=== PATIENT | male | born 1965 | race Caucasian/White ===

== ENCOUNTER 2019-05-30 11:48 | Emergency (ER) | payer OTHER, SELFPAY ==
[2019-05-30 11:56] VITALS: BP 160/99; PULSE 92; RESP 16; TEMP 36.9; O2SAT 100; BMI 23.0
--- NOTE | 2019-05-30 12:26 | ED_ITS ---
HPI - Allergic Reaction <JACQUELYN Meade - Last Filed: 05/31/19 00:26> General Chief complaint: Allergic Reaction Stated complaint: Allergic reaction, face swelling Time Seen by Provider: 05/30/19 12:00 Source: patient Mode of arrival: Ambulatory Limitations: no limitations History of Present Illness HPI narrative: This is a 53-year-old male, nonsmoker, who presents to ED with this significant other with chief complaint of sensitivity and discomfort on his tongue and whole mouth that woke him up from sleep this morning. Patient recently was seen at hospital at [facility] with a severe allergy reaction with swelling to his lips and itchy eyes to unknown allergen and was treated and discharged to home with 3 day course of prednisone 60 mg, Zyrtec (he had not started yet), Benadryl, Pepcid and EpiPen. Patient reports his symptoms recurring with watery and severely itchy eyes without other respiratory problems. Patient felt better with allergy reaction after he has taken prednisone. Patient taken hydroxyzine that he had from previous problems which helped him to get a couple more hours of rest. Patient denies breathing difficulty or swelling to his tongue, nausea or vomiting at this time. Related Data Previous Rx's Medication Instructions Recorded nystatin 5 ml PO QID 14 Days #280 ml 05/30/19 Review of Systems <JACQUELYN Meade - Last Filed: 05/31/19 00:26> Review of Systems ROS Unobtainable: All systems reviewed & are unremarkable except as noted in HPI and below PFSH <JACQUELYN Meade - Last Filed: 05/31/19 00:26> Medical History (Updated 05/30/19 @ 12:37 by JACQUELYN Meade) No significant past medical history (Acute) Surgical History No pertinent past surgical history (Acute) Social History Smoking Status: Never smoker Social History Smoking Status: Never smoker Exam <JACQUELYN Meade - Last Filed: 05/31/19 00:26> Narrative Exam Narrative: General appearance: well developed, well nourished, in no acute distress. Head: normocephalic, atraumatic, no scalp lesions, non-tender. Eye: pupil equal, round. EOMI. Conjunctivae injected and watery. Mild s welling to upper eye lids. Nose: nares patent. Oral: mucosa moist. White flat patches on the tongue. No oral pharyngeal swelling noted. Neck/Thyroid: neck supple, full range of motion, no visible masses. Skin: no suspicious rashes, lesions over visible areas. Warm and dry. Heart: no clubbing, no cyanosis, no edema. Lungs: Lungs clear to auscultate bilaterally in all lobes. Breathing even and unlabored. No stridor. No accessory muscles used. Chest: normal shape and expansion. Abdomen: non-obese, non-distended. Neurologic: alert and oriented. Cognitive exam, [employer] and PNS grossly intact on informal exam. Psych: good eye contact, normal affect. Initial Vital Signs Initial Vital Signs: Vital Signs Temperature 98.4 F 05/30/19 11:56 Pulse Rate 92 H 05/30/19 11:56 Respiratory Rate 16 05/30/19 11:56 Blood Pressure 160/99 H 05/30/19 11:56 Pulse Oximetry 100 05/30/19 11:56 <Hilaria Garcia DO - Last Filed: 05/31/19 07:46> Initial Vital Signs Initial Vital Signs: Vital Signs Temperature 98.4 F 05/30/19 11:56 Pulse Rate 92 H 05/30/19 11:56 Respiratory Rate 16 05/30/19 11:56 Blood Pressure 160/99 H 05/30/19 11:56 Pulse Oximetry 100 05/30/19 11:56 Scores <JACQUELYN Meade - Last Filed: 05/31/19 00:26> GCS Ml coma scale eye opening: Spontaneous [place] coma scale verbal response: Orientated [place] coma scale motor response: Obey commands [place] coma scale total score: 15 Course <JACQUELYN Meade - Last Filed: 05/31/19 00:26> Vital Signs Vital signs: Vital Signs - 8 hr 05/30/19 11:56 Temperature 98.4 F Pulse Rate 92 H Respiratory Rate 16 Blood Pressure 160/99 H Pulse Oximetry 100 <Hilaria Garcia DO - Last Filed: 05/31/19 07:46> Vital Signs Vital signs: Vital Signs - 8 hr 05/30/19 11:56 Temperature 98.4 F Pulse Rate 92 H Respiratory Rate 16 Blood Pressure 160/99 H Pulse Oximetry 100 MDM - Allergic Reaction <IRLANDA MeadeP - Last Filed: 05/31/19 00:26> Differential Diagnosis Differential diagnosis: Likely allergic reaction and other (Thrush) Medical Records Attestation: I reviewed the patient's medical records. Lab Data Labs: Point of Care Testing Glucose POC 127 MDM Narrative Medical decision making narrative: This is 53-year-old gentleman who currently is being treated for severe allergic reaction for last 3 days including prednisone oral with 60 mg. Patient denies history of diabetes. Patient has an appointment with Dr. Joseph tomorrow to follow-up with preventive medicine measures and to follow up. Today he noticed mouth and tongue sensitivity and discomfort. Physical exam is consistent with a thrush with white patches on his tongue. She finger stick glucose was 127 mg/dL. Patient will be treated with nystatin. Patient had use last dose of steroids this morning which helped with his allergy reaction. Patient has not started the Zyrtec that he should be taking daily. Patient advised to start Zyrtec and other H-2 blockers as a baseline allergy medications and to use sporadically Benadryl or hydroxyzine for acute allergy symptoms. Patient verbalized the understanding and agrees with treatment plan. Patient offered with IV Benadryl at this time but declined. Patient assured to follow up with Dr. Joseph tomorrow for a re-evaluation. <Hilaria Garcia DO - Last Filed: 05/31/19 07:46> Lab Data Labs: Point of Care Testing Glucose POC 127 Discharge Plan Departure Patient Disposition: Home Clinical Impression: Candidiasis of mouth Discharge Date/Time: 05/30/19 12:54 Instructions: DI for Thrush Activity Restrictions/Additional Instructions: You have been diagnosed with [thrush by physical exam and your symptoms. My suspicion is this may due to oral steroids. Your blood glucose was 127 today]. What to do: *Take your medications as directed. Please start nystatin swish and swallow for 4 times a day for next 14 days. Please start Zyrtec daily and H2 jose which is Pepcid, Zantac daily anterior symptoms improved. *Follow up with your primary care provider tomorrow as scheduled or call for an appointment. Let them know you were seen in the ED and that we asked you to be seen in follow up. *Return to ED if you have any new, worsening, or concerning symptoms, such as [breathing difficulty, swelling to her throat/tongue, chest pain, nausea/vomiting, feeling like fainting, fever, or any acute concerns]. Prescriptions: New nystatin 100,000 unit/mL suspension 5 ml PO QID 14 Days Qty: 280 RF: 0 Referrals: Ambrosio Joseph MD [Primary Care Provider] -
[2019-05-30 12:32] VITALS: BP 141/91; PULSE 65; O2SAT 98
[2019-05-30 12:54] VITALS: BP 157/96; PULSE 71; RESP 16; O2SAT 97
== END 2019-05-30 12:54 | disposition home or self-care (01) ==
PROVIDERS: Emergency Provider Nurse Practitioner Family; PCP Family Medicine
DX: T78.40XA Allergy, unspecified, initial encounter (principal)
CPT/HCPCS: 36415; 82962; 99282

== ENCOUNTER 2019-06-01 11:10 | Inpatient (IN) | payer OTHER, SELFPAY ==
[2019-06-01] VITALS (14 sets, daily range): BP systolic 143–165; BP diastolic 94–103; PULSE 92–116; RESP 12–22; TEMP 37.8–38.2; O2SAT 95–100; BMI 23.0
--- NOTE | 2019-06-01 11:41 | DI.RAD.S_ITS ---
PROCEDURE: XR CHEST 2V INDICATIONS: cough, fever TECHNIQUE: 2 views of the chest were acquired. COMPARISON: [facility], , [place] [facility], 04/14/2001, 14:52. FINDINGS: Surgical changes and devices: None. Lungs and pleura: Lungs are clear. No pleural effusions or pneumothorax. Mediastinum: Mediastinal contours are normal. Heart size is normal. Bones and chest wall: No suspicious bony abnormalities. Soft tissues appear unremarkable. IMPRESSION: No acute cardiopulmonary disease process. Dictated by: Lana Gusman MD, PhD on 06/01/2019 at 12:26 Approved by: Lana Gusman MD, PhD on 06/01/2019 at 12:27
[2019-06-01] MEDS: KETOROLAC 60 MG/2 ML VIAL 30 MG IV (11:58)
[2019-06-01] MEDS: MAG HYDROX/ALUMINUM/SIMETH SUS 20 ML, LIDOCAINE VISCOUS 2% 15 ML PO ×2 (11:58→15:43)
[2019-06-01] MEDS: SODIUM CHLORIDE 0.9% 1,000 ML 1000 ML IV (11:58)
[2019-06-01 12:00] LABS: Add Manual Diff / Slide Review NO; Basophils Absolute Auto 0 /uL (0-100); Basophils Percent Auto 0.3 % (0-2); Eosinophils Absolute Auto 0 /uL (0-450); Eosinophils Percent Auto 0.3 % (2-4); Hematocrit 40.9 % (41-53); Lymphocytes Absolute Auto 1200 /uL (1100-4500); Lymphocytes Percent Auto 10.2 % (25-40); Mean Corpuscular HGB Conc 34.3 % (30-36); Mean Corpuscular Hemoglobin 31.2 PG (26-34); Mean Corpuscular Volume 91.1 fL (80-100); Monocytes Absolute Auto 1300 /uL (0-900); Monocytes Percent Auto 10.9 % (3-14); Neutrophils Absolute Auto 9500 /uL (1500-7000); Neutrophils Percent Auto 78.3 % (50-75); Platelet Count 186 X10^3/uL (150-400); Red Blood Cell Count 4.49 X10^6/uL (4.5-5.9); Red Cell Distribution Width 12.5 % (11.6-14.8); White Blood Cell Count 12.1 X10^3/uL (4.5-11.0)
[2019-06-01 12:09] LABS: Monotest Negative (Negative)
[2019-06-01 12:12] LABS: Alanine Aminotransferase 26 IU/L (21-72); Albumin 4.3 g/dL (3.5-5.0); Albumin Globulin Ratio 1.2 (1.0-2.8); Alkaline Phosphatase 62 U/L (38-126); Aspartate Aminotransferase 32 IU/L (17-59); BUN Creatinine Ratio 15.5 (6-22); Bilirubin Total 0.9 mg/dL (0.2-1.3); Blood Urea Nitrogen 17 mg/dL (9-20); Calcium 9.5 mg/dL (8.4-10.2); Carbon Dioxide 29 mmol/L (22-32); Chloride 102 mmol/L (98-107); Estimated Glomerular Filt Rate > 60.0 mL/min (>60); Globulin 3.5 g/dL (1.7-4.1); Glucose 116 mg/dL (70-100); HEMOLYSIS < 15 (0-50); Lactate (Lactic Acid) 0.7 mmol/L (0.7-2.1); Potassium 3.5 mmol/L (3.4-5.1); Sodium 139 mmol/L (137-145); Total Protein 7.8 g/dL (6.3-8.2)
[2019-06-01 12:29] LABS: Procalcitonin 0.11 ng/mL (<0.5)
[2019-06-01 12:38] LABS: Influenza A and B by PCR Rapid Negative (Negative)
[2019-06-01] MEDS: diphenhydrAMINE 50 MG/ML VIAL 25 MG IV (13:21)
[2019-06-01] MEDS: ALBUTEROL/IPRATROPIUM 3 ML AMPUL INH ×2 (14:10→18:00)
[2019-06-01] MEDS: ACETAMINOPHEN SUSP 650 MG/20.3 ML UDC PO (14:37)
--- NOTE | 2019-06-01 15:21 | ED.URI ---
HPI - URI/Sore Throat <JACQUELYN Meade - Last Filed: 06/02/19 01:00> General Chief Complaint: Upper Respiratory Symptoms Stated Complaint: thrush Time Seen by Provider: 06/01/19 11:29 Source: patient and family Mode of arrival: Ambulatory Limitations: no limitations History of Present Illness HPI Narrative: This is a 53-year-old male, nonsmoker, who was evaluated 2 days ago in ER with thrush. Prior to this, patient was evaluated at [place] emergency room with severe allergy reaction to unknown allergen and had received epinephrine, steroids, histamine jose and Benadryl. He was discharged to home for 3 additional day course of prednisone 60 mg p.o.. On Friday he woke up with severe mouth and tongue discomfort he had difficult time with eating, drinking fluids and food. He was discharged to home with nystatin q.i.d. dose and was advised to follow up with his primary care physician. He contacted his primary care physician Dr. Joseph and was referred to ED for an evaluation. Patient reports continued odynophagia even with swallowing his saliva, feels swollen in his throat, mild fever, unable keep supine position due to feels like his saliva is going down to my lungs. He denies short of breath with this. He states it takes about 30 minutes is to swallow a few pills due to pain and is able to only tolerate few sips of milk. Patient reports he has been using nystatin about every 2 hours thought this is helping him somewhat. Related Data Home Medications Medication Instructions Recorded Confirmed hydrocodone-acetaminophen 1 - 2 tab PO Q6H PRN 06/01/19 06/01/19 Previous Rx's Medication Instructions Recorded nystatin 5 ml PO QID 14 Days #280 ml 05/30/19 Allergies Allergy/AdvReac Type Severity Reaction Status Date / Time No Known Drug Allergies Allergy Verified 06/01/19 11:23 Review of Systems <JACQUELYN Meade - Last Filed: 06/02/19 01:00> Review of Systems Narrative: General: Reports mild fever. Denies Chills, fatigue, malaise, sweats. HEENT: See HPI Respiratory: Reports cough. Denies dyspnea, wheezing, hemoptysis, sputum. Cardiovascular: Denies chest pain, palpitations, orthopnea, edema. Gastrointestinal: See HPI : Denies dysuria, frequency, incontinence, hematuria, urinary retention. Musculoskeletal: Denies weakness, joint pain or bony pain. Skin: Denies rash, skin lesions, or other. Neurologic: Denies weakness, headache, numbness, change in speech, confusion, seizures, incoordination. Psychiatric: No concerning psychosocial issues. 12-point review of systems is negative except for those stated above. PFSH <JACQUELYN Meade - Last Filed: 06/02/19 01:00> Medical History No significant past medical history (Acute) Surgical History No pertinent past surgical history (Acute) Social History Smoking Status: Never smoker Social History household members: significant other Smoking Status: Never smoker Exam <JACQUELYN Meade - Last Filed: 06/02/19 01:00> Narrative Exam Narrative: GEN: Alert, oriented x 3, ill appearing with mild distress, talking with muffled voice. Head: Normal cephalic, atraumatic. No scalp or temporal tenderness, palpable mass or rash. EYES: Pupils are equal, round, and reactive to light and accommodation. Extraocular muscles are intact bilaterally. Bilateral conjunctival injection. No subconjunctival hemorrhage, exudate and sclera non-icteric. ENT: Hearing grossly intact. Nose without bleeding, purulent discharge or deviation. Mucous membrane moist, thick white patchy on tongue and roof of mouth without ulcerations. Throat with erythema. No tonsillar hypertrophy or exudate. Uvula in midline, airway patent. Neck: Trachea in midline. No JVD, non-tender without obvious mild cervical lymphadenopathy. No masses or thyroid megaly. Supple, non-tender and no meningeal signs. CARDIAC: Tachycardia but in regular rhythm without murmurs, gallops, or rubs. No chest wall tenderness. No peripheral edema, cyanosis or pallor. Capillary refill is less than 2 seconds. RESPIRATORY: Lungs are cleat to auscultate bilaterally. No cough, wheezes, rales, or rhonchi. No respiratory distress, increase work of breathing, or accessary muscle used. ABD: Abdomen soft, nontender and non-distended. No guarding or rebound tenderness to palpate. Bowel sounds are normal in all 4 quadrants. There is no palpable masses or organomegaly. EXT: Full painless ROM of all extremities with no loss of sensation, strength, effusion or edema. SKIN: Warm, dry, normal color for patient. No erythema, lesions or rash over visible areas. BACK: Nontender without deformity or crepitance. No flank tenderness. NEUROLOGICAL: Alert and oriented to place, time and person. Sensation and motor function intact bilaterally. No facial droops, dysphasia. PSYCHIATRIC: Good judgement and reason, without hallucinations, abnormal affect or abnormal behaviors during the examination. Patient is not suicidal. Initial Vital Signs Initial Vital Signs: Vital Signs Temperature 100.3 F H 06/01/19 11:19 Pulse Rate 116 H 06/01/19 11:19 Respiratory Rate 22 06/01/19 11:19 Blood Pressure 155/103 H 06/01/19 11:19 Pulse Oximetry 97 06/01/19 11:19 <Kelle Nguyen DO - Last Filed: 06/02/19 07:05> Initial Vital Signs Initial Vital Signs: Vital Signs Temperature 100.3 F H 06/01/19 11:19 Pulse Rate 116 H 06/01/19 11:19 Respiratory Rate 22 06/01/19 11:19 Blood Pressure 155/103 H 06/01/19 11:19 Pulse Oximetry 97 06/01/19 11:19 Course <JACQUELYN Meade - Last Filed: 06/02/19 01:00> Orders Ordered: Albuterol/Ipratropium (Duoneb) 3 ml INH RTQ6HR PRN PRN Reason: Shortness Of Breath Dexamethasone (Decadron) 5 mg IV Q6HR [facility] Last Admin: 06/02/19 06:41 Dose: 5 mg Documented by: Admin: 06/02/19 00:21 Dose: 5 mg Documented by: Admin: 06/01/19 22:56 Dose: 5 mg Documented by: LEO Enoxaparin Sodium (Lovenox) 40 mg SUBCUT DAILY [facility] Hydromorphone HCl (Dilaudid) 0.5 mg IV Q2H PRN PRN Reason: Pain, Severe (7-10) Last Admin: 06/02/19 05:36 Dose: 0.5 mg Documented by: Admin: 06/02/19 03:06 Dose: 0.5 mg Documented by: Admin: 06/02/19 00:28 Dose: 0.5 mg Documented by: CLAUDIA Sodium Chloride (Normal Saline 0.9%) 1,000 mls @ 100 mls/hr IV CONT TIFFANIE Last Admin: 06/01/19 21:30 Dose: 100 mls/hr Documented by: Infusion: 06/01/19 21:30 Dose: 100 mls/hr Documented by: Admin: 06/01/19 18:08 Dose: 100 mls/hr Documented by: LULA Ampicillin Sodium/Sulbactam (Sodium 3 gm/ Sodium Chloride) 100 mls @ 100 mls/hr IV Q6H TIFFANIE Last Infusion: 06/02/19 04:10 Dose: 100 mls/hr Documented by: Admin: 06/02/19 03:07 Dose: 100 mls/hr Documented by: CLAUDIA Ketorolac Tromethamine (Toradol) 15 mg IV Q6H TIFFANIE Stop: 06/07/19 00:29 Last Admin: 06/02/19 06:51 Dose: 15 mg Documented by: Admin: 06/02/19 00:37 Dose: 15 mg Documented by: CLAUDIA Sodium Chloride (Normal Saline 0.9% Flush) 10 ml IV PRN PRN PRN Reason: Flush Last Admin: 06/02/19 06:52 Dose: 10 ml Documented by: Admin: 06/02/19 06:41 Dose: 10 ml Documented by: Admin: 06/02/19 05:37 Dose: 10 ml Documented by: CLAUDIA Discontinued Medications Acetaminophen (Tylenol Susp) 650 mg PO NOW ONE Stop: 06/01/19 14:18 Last Admin: 06/01/19 14:37 Dose: 650 mg Documented by: CANDE Albuterol/Ipratropium (Duoneb) 3 ml INH NOW ONE Stop: 06/01/19 13:55 Last Admin: 06/01/19 14:10 Dose: 3 ml Documented by: MARÍA ELENA Albuterol/Ipratropium (Duoneb) 3 ml INH NOW ONE Stop: 06/01/19 17:54 Last Admin: 06/01/19 18:00 Dose: 3 ml Documented by: GEOVANNI Medina Hydrox/Mg Hydrox/Simethicone 20 ml/ Lidocaine HCl 15 ml 0 ml PO NOW ONE Stop: 06/01/19 11:42 Last Admin: 06/01/19 11:58 Dose: 35 ml Documented by: CANDE Medina Hydrox/Mg Hydrox/Simethicone 20 ml/ Lidocaine HCl 15 ml 0 ml PO NOW ONE Stop: 06/01/19 15:22 Last Admin: 06/01/19 15:43 Dose: 15 ml Documented by: LULA Diphenhydramine HCl (Benadryl) 25 mg IV NOW ONE Stop: 06/01/19 12:53 Last Admin: 06/01/19 13:21 Dose: 25 mg Documented by: CANDE Sodium Chloride (Normal Saline 0.9%) 1,000 mls @ 1,000 mls/hr IV BOLUS ONE Stop: 06/01/19 12:40 Last Infusion: 06/01/19 13:16 Dose: 0 mls/hr Documented by: Admin: 06/01/19 11:58 Dose: 1,000 mls/hr Documented by: CANDE Dexamethasone 20 mg/ Sodium (Chloride) 52 mls @ 208 mls/hr IV NOW ONE Stop: 06/01/19 17:53 Last Infusion: 06/01/19 18:31 Dose: 0 mls/hr Documented by: Admin: 06/01/19 18:07 Dose: 208 mls/hr Documented by: LULA Ampicillin Sodium/Sulbactam (Sodium 3 gm/ Sodium Chloride) 100 mls @ 100 mls/hr IV Q6H TIFFANIE Last Admin: 06/02/19 01:42 Dose: Not Given Documented by: Infusion: 06/02/19 00:17 Dose: 0 mls/hr Documented by: Admin: 06/01/19 21:29 Dose: 100 mls/hr Documented by: LEO Ketorolac Tromethamine (Toradol) 30 mg IV NOW ONE Stop: 06/01/19 11:42 Last Admin: 06/01/19 11:58 Dose: 30 mg Documented by: CANDE Morphine Sulfate (Morphine) 2 mg IV NOW ONE Stop: 06/01/19 18:13 Last Admin: 06/01/19 18:15 Dose: 2 mg Documented by: LULA Nystatin (Mycostatin Susp) 500,000 unit PO NOW ONE Stop: 06/01/19 15:09 Last Admin: 06/01/19 15:53 Dose: 500,000 unit Documented by: CANDE Vital Signs Vital signs: Vital Signs - 8 hr 06/01/19 11:19 06/01/19 11:58 06/01/19 12:30 Temperature 100.3 F H 100.3 F H Pulse Rate 116 H 96 H Respiratory Rate 22 15 Blood Pressure 155/103 H Blood Pressure [Right Arm] 143/101 H Pulse Oximetry 97 97 06/01/19 13:05 06/01/19 13:16 06/01/19 13:45 Temperature 100.0 F H Pulse Rate 92 H 98 H Respiratory Rate 14 17 Blood Pressure Blood Pressure [Right Arm] 154/96 H 164/99 H Pulse Oximetry 97 99 06/01/19 14:10 06/01/19 14:37 06/01/19 15:15 Temperature 100.3 F H Pulse Rate 103 H 105 H Respiratory Rate 18 16 Blood Pressure Blood Pressure [Right Arm] 145/95 H Pulse Oximetry 100 95 06/01/19 16:17 Temperature Pulse Rate 103 H Respiratory Rate 22 Blood Pressure Blood Pressure [Right Arm] 145/100 H Pulse Oximetry 96 <Kelle Nguyen DO - Last Filed: 06/02/19 07:05> Orders Ordered: Albuterol/Ipratropium (Duoneb) 3 ml INH RTQ6HR PRN PRN Reason: Shortness Of Breath Dexamethasone (Decadron) 5 mg IV Q6HR [facility] Last Admin: 06/02/19 06:41 Dose: 5 mg Documented by: Admin: 06/02/19 00:21 Dose: 5 mg Documented by: Admin: 06/01/19 22:56 Dose: 5 mg Documented by: LEO Enoxaparin Sodium (Lovenox) 40 mg SUBCUT DAILY [facility] Hydromorphone HCl (Dilaudid) 0.5 mg IV Q2H PRN PRN Reason: Pain, Severe (7-10) Last Admin: 06/02/19 05:36 Dose: 0.5 mg Documented by: Admin: 06/02/19 03:06 Dose: 0.5 mg Documented by: Admin: 06/02/19 00:28 Dose: 0.5 mg Documented by: CLAUDIA Sodium Chloride (Normal Saline 0.9%) 1,000 mls @ 100 mls/hr IV CONT TIFFANIE Last Admin: 06/01/19 21:30 Dose: 100 mls/hr Documented by: Infusion: 06/01/19 21:30 Dose: 100 mls/hr Documented by: Admin: 06/01/19 18:08 Dose: 100 mls/hr Documented by: LULA Ampicillin Sodium/Sulbactam (Sodium 3 gm/ Sodium Chloride) 100 mls @ 100 mls/hr IV Q6H [facility] Last Infusion: 06/02/19 04:10 Dose: 100 mls/hr Documented by: Admin: 06/02/19 03:07 Dose: 100 mls/hr Documented by: CLAUDIA Ketorolac Tromethamine (Toradol) 15 mg IV Q6H TIFFANIE Stop: 06/07/19 00:29 Last Admin: 06/02/19 06:51 Dose: 15 mg Documented by: Admin: 06/02/19 00:37 Dose: 15 mg Documented by: CLAUDIA Sodium Chloride (Normal Saline 0.9% Flush) 10 ml IV PRN PRN PRN Reason: Flush Last Admin: 06/02/19 06:52 Dose: 10 ml Documented by: Admin: 06/02/19 06:41 Dose: 10 ml Documented by: Admin: 06/02/19 05:37 Dose: 10 ml Documented by: CLAUDIA Discontinued Medications Acetaminophen (Tylenol Susp) 650 mg PO NOW ONE Stop: 06/01/19 14:18 Last Admin: 06/01/19 14:37 Dose: 650 mg Documented by: CANDE Albuterol/Ipratropium (Duoneb) 3 ml INH NOW ONE Stop: 06/01/19 13:55 Last Admin: 06/01/19 14:10 Dose: 3 ml Documented by: MARÍA ELENA Albuterol/Ipratropium (Duoneb) 3 ml INH NOW ONE Stop: 06/01/19 17:54 Last Admin: 06/01/19 18:00 Dose: 3 ml Documented by: GEOVANNI Medina Hydrox/Mg Hydrox/Simethicone 20 ml/ Lidocaine HCl 15 ml 0 ml PO NOW ONE Stop: 06/01/19 11:42 Last Admin: 06/01/19 11:58 Dose: 35 ml Documented by: CANDE Medina Hydrox/Mg Hydrox/Simethicone 20 ml/ Lidocaine HCl 15 ml 0 ml PO NOW ONE Stop: 06/01/19 15:22 Last Admin: 06/01/19 15:43 Dose: 15 ml Documented by: LULA Diphenhydramine HCl (Benadryl) 25 mg IV NOW ONE Stop: 06/01/19 12:53 Last Admin: 06/01/19 13:21 Dose: 25 mg Documented by: CANDE Sodium Chloride (Normal Saline 0.9%) 1,000 mls @ 1,000 mls/hr IV BOLUS ONE Stop: 06/01/19 12:40 Last Infusion: 06/01/19 13:16 Dose: 0 mls/hr Documented by: Admin: 06/01/19 11:58 Dose: 1,000 mls/hr Documented by: CANDE Dexamethasone 20 mg/ Sodium (Chloride) 52 mls @ 208 mls/hr IV NOW ONE Stop: 06/01/19 17:53 Last Infusion: 06/01/19 18:31 Dose: 0 mls/hr Documented by: Admin: 06/01/19 18:07 Dose: 208 mls/hr Documented by: LULA Ampicillin Sodium/Sulbactam (Sodium 3 gm/ Sodium Chloride) 100 mls @ 100 mls/hr IV Q6H TIFFANIE Last Admin: 06/02/19 01:42 Dose: Not Given Documented by: Infusion: 06/02/19 00:17 Dose: 0 mls/hr Documented by: Admin: 06/01/19 21:29 Dose: 100 mls/hr Documented by: LEO Ketorolac Tromethamine (Toradol) 30 mg IV NOW ONE Stop: 06/01/19 11:42 Last Admin: 06/01/19 11:58 Dose: 30 mg Documented by: CANDE Morphine Sulfate (Morphine) 2 mg IV NOW ONE Stop: 06/01/19 18:13 Last Admin: 06/01/19 18:15 Dose: 2 mg Documented by: LULA Nystatin (Mycostatin Susp) 500,000 unit PO NOW ONE Stop: 06/01/19 15:09 Last Admin: 06/01/19 15:53 Dose: 500,000 unit Documented by: CANDE Vital Signs Vital signs: Vital Signs - 8 hr 06/01/19 11:19 06/01/19 11:58 06/01/19 12:30 Temperature 100.3 F H 100.3 F H Pulse Rate 116 H 96 H Respiratory Rate 22 15 Blood Pressure 155/103 H Blood Pressure [Right Arm] 143/101 H Pulse Oximetry 97 97 06/01/19 13:05 06/01/19 13:16 06/01/19 13:45 Temperature 100.0 F H Pulse Rate 92 H 98 H Respiratory Rate 14 17 Blood Pressure Blood Pressure [Right Arm] 154/96 H 164/99 H Pulse Oximetry 97 99 06/01/19 14:10 06/01/19 14:37 06/01/19 15:15 Temperature 100.3 F H Pulse Rate 103 H 105 H Respiratory Rate 18 16 Blood Pressure Blood Pressure [Right Arm] 145/95 H Pulse Oximetry 100 95 06/01/19 16:17 Temperature Pulse Rate 103 H Respiratory Rate 22 Blood Pressure Blood Pressure [Right Arm] 145/100 H Pulse Oximetry 96 MDM - URI/Sore Throat <JACQUELYN Meade - Last Filed: 06/02/19 01:00> Differential Diagnosis Differential diagnosis: Likely upper respiratory infection, pharyngitis and other (Thrush, dysphagia, airway edema, epiglottitis, peritonsillar abscess) Medical Records Attestation: I reviewed the patient's medical records. Lab Data Attestation: I reviewed the patient's lab results. Result diagrams: 06/02/19 05:35 06/01/19 11:36 Labs: Lab Results 06/01/19 06/01/19 06/01/19 Range/Units 11:36 11:36 11:36 WBC 12.1 H (4.5-11.0) X10^3/uL RBC 4.49 L (4.5-5.9) X10^6/uL Hgb 14.0 (13.5-17.5) g/dL Hct 40.9 L (41-53) % MCV 91.1 (80-100) fL MCH 31.2 (26-34) PG MCHC 34.3 (30-36) % RDW 12.5 (11.6-14.8) % Plt Count 186 (150-400) X10^3/uL Neut % (Auto) 78.3 H (50-75) % Lymph % (Auto) 10.2 L (25-40) % Crawford % (Auto) 10.9 (3-14) % Eos % (Auto) 0.3 L (2-4) % Baso % (Auto) 0.3 (0-2) % Neut # (Auto) 9500 H (4687-7968) /uL Lymph # (Auto) 1200 (6928-8797) /uL Crawford # (Auto) 1300 H (0-900) /uL Eos # (Auto) 0 (0-450) /uL Baso # (Auto) 0 (0-100) /uL Sodium 139 (137-145) mmol/L Potassium 3.5 (3.4-5.1) mmol/L Chloride 102 (98-107) mmol/L Carbon Dioxide 29 (22-32) mmol/L BUN 17 (9-20) mg/dL Creatinine 1.10 (0.66-1.25) mg/dL Estimated GFR > 60.0 (>60) mL/min BUN/Creatinine Ratio 15.5 (6-22) Glucose 116 H (70-100) mg/dL Lactate 0.7 (0.7-2.1) mmol/L Calcium 9.5 (8.4-10.2) mg/dL Total Bilirubin 0.9 (0.2-1.3) mg/dL AST 32 (17-59) IU/L ALT 26 (21-72) IU/L Alkaline Phosphatase 62 (38-126) U/L Total Protein 7.8 (6.3-8.2) g/dL Albumin 4.3 (3.5-5.0) g/dL Globulin 3.5 (1.7-4.1) g/dL Albumin/Globulin Ratio 1.2 (1.0-2.8) Procalcitonin (<0.5) ng/mL Monoscreen (Negative) Influenza A & B (PCR) (Negative) 06/01/19 06/01/19 06/01/19 Range/Units 11:36 11:36 12:05 WBC (4.5-11.0) X10^3/uL RBC (4.5-5.9) X10^6/uL Hgb (13.5-17.5) g/dL Hct (41-53) % MCV (80-100) fL MCH (26-34) PG MCHC (30-36) % RDW (11.6-14.8) % Plt Count (150-400) X10^3/uL Neut % (Auto) (50-75) % Lymph % (Auto) (25-40) % Crawford % (Auto) (3-14) % Eos % (Auto) (2-4) % Baso % (Auto) (0-2) % Neut # (Auto) (7663-7733) /uL Lymph # (Auto) (2765-9324) /uL Crawford # (Auto) (0-900) /uL Eos # (Auto) (0-450) /uL Baso # (Auto) (0-100) /uL Sodium (137-145) mmol/L Potassium (3.4-5.1) mmol/L Chloride (98-107) mmol/L Carbon Dioxide (22-32) mmol/L BUN (9-20) mg/dL Creatinine (0.66-1.25) mg/dL Estimated GFR (>60) mL/min BUN/Creatinine Ratio (6-22) Glucose (70-100) mg/dL Lactate (0.7-2.1) mmol/L Calcium (8.4-10.2) mg/dL Total Bilirubin (0.2-1.3) mg/dL AST (17-59) IU/L ALT (21-72) IU/L Alkaline Phosphatase (38-126) U/L Total Protein (6.3-8.2) g/dL Albumin (3.5-5.0) g/dL Globulin (1.7-4.1) g/dL Albumin/Globulin Ratio (1.0-2.8) Procalcitonin 0.11 (<0.5) ng/mL Monoscreen Negative (Negative) Influenza A & B (PCR) Negative (Negative) Point of Care Testing Rapid Strep A Negative Imaging Data Chest x-ray: Radiologist's impression: [address] [address] XRay Report Signed Patient: Derick Morgan KMR#: [id number] : 1965Acct:[id number] Age/Sex: 53 / MDate of Service: 06/01/19 Loc: ED Accession Number: [id number] Procedure: XR chest 2V Ordering Provider: Pernell Currie PROCEDURE: XR CHEST 2V INDICATIONS: cough, fever TECHNIQUE: 2 views of the chest were acquired. COMPARISON: [facility], , RENAL, 04/14/2001, 14:52. FINDINGS: Surgical changes and devices: None. Lungs and pleura: Lungs are clear. No pleural effusions or pneumothorax. Mediastinum: Mediastinal contours are normal. Heart size is normal. Bones and chest wall: No suspicious bony abnormalities. Soft tissues appear unremarkable. IMPRESSION: No acute cardiopulmonary disease process. Dictated by: Lana Gusman MD, PhD on 06/01/2019 at 12:26 Approved by: Lana Gusman MD, PhD on 06/01/2019 at 12:27 CT-Neck soft tissue: Radiologist's impression: [address] [address] [address] Scan Report Signed Patient: Derick Morgan KMR#: [id number] : 1965Acct:[id number] Age/Sex: 53 / MDate of Service: 06/01/19 Loc: ED Accession Number: [id number] Procedure: CT soft tissue neck w con Ordering Provider: Pernell Currie PROCEDURE: CT SOFT TISSUE NECK W CON INDICATIONS: dysphagia of fluid, pain, fever TECHNIQUE: After the administration of intravenous contrast, 3.0 mm axial sections acquired from the sella to the aortic arch. Additional oblique axial 3.0 mm sections acquired through the pharynx. 3 mm thick coronal and sagittal reformats were generated. For radiation dose reduction, the following was used: automated exposure control. COMPARISON: None. FINDINGS: Image quality: There is streak artifact from patient's dental hardware bilaterally. Lymph nodes: There are bilateral mildly prominent cervical lymph nodes including a right level II node measuring up to 1.0 cm in short axis. Findings are nonspecific but likely reactive. Vessels: Visualized vasculature appears patent. Neck spaces: The oropharynx, nasopharynx, and pharynx demonstrate no discrete mucosal mass lesions. There is mild concentric mucosal thickening within the oropharynx with associated mild luminal narrowing. The vocal cords, false vocal cords, pyriform sinuses, epiglottis, vallecula, and tongue base all appear within normal limits. Extramucosal spaces appear within normal limits. No evidence of a tonsillar or peritonsillar abscess. Glands: The parotid and submandibular glands appear normal. Thyroid gland demonstrates no discrete nodules at. Miscellaneous: Visualized brain and orbits appear normal. Lung apices demonstrate irregular nodule in the right apex measuring up to approximately 0.5 cm. Superficial soft tissues appear normal. Bones: No suspicious bony lesions. Visualized sinuses and mastoids appear unremarkable. IMPRESSION: 1. Mild mucosal thickening in the oropharynx with associated mild luminal narrowing. No discrete mass lesion or fluid collection in the neck. 2. Mildly prominent bilateral cervical lymph nodes are nonspecific but likely reactive. 3. Irregular small nodule in the right lung apex. Other findings represent scarring, a small neoplasm cannot be excluded. Recommend followup chest CT in 6 months to demonstrate stability if clinically indicated. Dictated by: Gorge Kang M.D. on 06/01/2019 at 17:07 Approved by: Gorge Kang M.D. on 06/01/2019 at 17:14 [facility] Narrative Medical decision making narrative: This is a 53-year-old gentleman who presents to ED twice over last 3 days. Patient was seen initially with thrush after he was treated for an allergy reaction at [place] emergency room including Epinephrine, steroids, benadryl, histamine jose and discharged to home with allergy medication, Benadryl, prednisone 60 mg for 3 days, and histamine jose. When patient was seen in [facility] Emergency room initially, had completed a course of steroids and noticed light white patch on his tongue with discomfort. Patient was discharged than with nystatin 500,000 unit q.i.d. does. Patient returned today with worsening symptoms of mouth/tongue discomfort with thick white patches on his tongue and roof of the mouth, unable to tolerate food but small amount of milk due to pain, mild fever, unable to manage his secretion well and unable to rest in supine position due to difficulty swallowing. Patient denies short of breath at this time. The Monospot, strep PCR and flu swabs were negative. Wound culture on his mouth and tongue was obtained and sent out to lab with pending results. Obtained without acute findings such as pneumonia, pleural effusion or pneumothorax. There was mild increase in WBC with a neutrophil, mild decrease of lymphocytes and eosinophil. Blood glucose was mildly elevated without signs of dehydration. Procalcitonin and lactate were negative. Patient was medicated multiple times with multiple medications to treat his symptoms. Patient's fever/pain was treated with Tylenol and Toradol. He was hydrated with 1 L of normal saline. Oral discomfort was medicated with GI cocktailsx2. Routine nystatin medications were provided as scheduled. Provided DuoNeb for coughing and secretion and wet crackles in upper lobes. Patient was unable to pass a swallow test for putting consistency that was conducted by speech therapist in the ED. He has been placed on NPO except declined medication at this time. Consulted Dr. Joseph over phone call with patient's condition and added CT soft and neck order as Dr. Joseph requested. Patient reports his discomfort has improved a bit and fever has improved. Patient was evaluated by Dr. Joseph after this and he kindly accepted patient for an admission and took over his care. <Kelle Nguyen, DO - Last Filed: 06/02/19 07:05> Lab Data Labs: Lab Results 06/01/19 06/01/19 06/01/19 Range/Units 11:36 11:36 11:36 WBC 12.1 H (4.5-11.0) X10^3/uL RBC 4.49 L (4.5-5.9) X10^6/uL Hgb 14.0 (13.5-17.5) g/dL Hct 40.9 L (41-53) % MCV 91.1 (80-100) fL MCH 31.2 (26-34) PG MCHC 34.3 (30-36) % RDW 12.5 (11.6-14.8) % Plt Count 186 (150-400) X10^3/uL Neut % (Auto) 78.3 H (50-75) % Lymph % (Auto) 10.2 L (25-40) % Crawford % (Auto) 10.9 (3-14) % Eos % (Auto) 0.3 L (2-4) % Baso % (Auto) 0.3 (0-2) % Neut # (Auto) 9500 H (8994-7915) /uL Lymph # (Auto) 1200 (4542-7146) /uL Crawford # (Auto) 1300 H (0-900) /uL Eos # (Auto) 0 (0-450) /uL Baso # (Auto) 0 (0-100) /uL Sodium 139 (137-145) mmol/L Potassium 3.5 (3.4-5.1) mmol/L Chloride 102 (98-107) mmol/L Carbon Dioxide 29 (22-32) mmol/L BUN 17 (9-20) mg/dL Creatinine 1.10 (0.66-1.25) mg/dL Estimated GFR > 60.0 (>60) mL/min BUN/Creatinine Ratio 15.5 (6-22) Glucose 116 H (70-100) mg/dL Lactate 0.7 (0.7-2.1) mmol/L Calcium 9.5 (8.4-10.2) mg/dL Total Bilirubin 0.9 (0.2-1.3) mg/dL AST 32 (17-59) IU/L ALT 26 (21-72) IU/L Alkaline Phosphatase 62 (38-126) U/L Total Protein 7.8 (6.3-8.2) g/dL Albumin 4.3 (3.5-5.0) g/dL Globulin 3.5 (1.7-4.1) g/dL Albumin/Globulin Ratio 1.2 (1.0-2.8) Procalcitonin (<0.5) ng/mL Monoscreen (Negative) Influenza A & B (PCR) (Negative) 06/01/19 06/01/19 06/01/19 Range/Units 11:36 11:36 12:05 WBC (4.5-11.0) X10^3/uL RBC (4.5-5.9) X10^6/uL Hgb (13.5-17.5) g/dL Hct (41-53) % MCV (80-100) fL MCH (26-34) PG MCHC (30-36) % RDW (11.6-14.8) % Plt Count (150-400) X10^3/uL Neut % (Auto) (50-75) % Lymph % (Auto) (25-40) % [place] % (Auto) (3-14) % Eos % (Auto) (2-4) % Baso % (Auto) (0-2) % Neut # (Auto) (8286-7544) /uL Lymph # (Auto) (6658-0760) /uL [place] # (Auto) (0-900) /uL Eos # (Auto) (0-450) /uL Baso # (Auto) (0-100) /uL Sodium (137-145) mmol/L Potassium (3.4-5.1) mmol/L Chloride (98-107) mmol/L Carbon Dioxide (22-32) mmol/L BUN (9-20) mg/dL Creatinine (0.66-1.25) mg/dL Estimated GFR (>60) mL/min BUN/Creatinine Ratio (6-22) Glucose (70-100) mg/dL Lactate (0.7-2.1) mmol/L Calcium (8.4-10.2) mg/dL Total Bilirubin (0.2-1.3) mg/dL AST (17-59) IU/L ALT (21-72) IU/L Alkaline Phosphatase (38-126) U/L Total Protein (6.3-8.2) g/dL Albumin (3.5-5.0) g/dL Globulin (1.7-4.1) g/dL Albumin/Globulin Ratio (1.0-2.8) Procalcitonin 0.11 (<0.5) ng/mL Monoscreen Negative (Negative) Influenza A & B (PCR) Negative (Negative) Point of Care Testing Rapid Strep A Negative Discharge Plan Departure Patient Disposition: Admitted as Observation Clinical Impression: Laryngeal edema Discharge Date/Time: 06/01/19 18:51 Admit Date/Time: 06/01/19 17:34 Admit Provider: Ambrosio Joseph
[2019-06-01] MEDS: NYSTATIN SUSP 500,000 UNIT/5 ML UDC 500000 UNIT PO (15:53)
--- NOTE | 2019-06-01 16:41 | DI.CT.S_ITS ---
PROCEDURE: CT SOFT TISSUE NECK W CON INDICATIONS: dysphagia of fluid, pain, fever TECHNIQUE: After the administration of intravenous contrast, 3.0 mm axial sections acquired from the sella to the aortic arch. Additional oblique axial 3.0 mm sections acquired through the pharynx. 3 mm thick coronal and sagittal reformats were generated. For radiation dose reduction, the following was used: automated exposure control. COMPARISON: None. FINDINGS: Image quality: There is streak artifact from patient's dental hardware bilaterally. Lymph nodes: There are bilateral mildly prominent cervical lymph nodes including a right level II node measuring up to 1.0 cm in short axis. Findings are nonspecific but likely reactive. Vessels: Visualized vasculature appears patent. Neck spaces: The oropharynx, nasopharynx, and pharynx demonstrate no discrete mucosal mass lesions. There is mild concentric mucosal thickening within the oropharynx with associated mild luminal narrowing. The vocal cords, false vocal cords, pyriform sinuses, epiglottis, vallecula, and tongue base all appear within normal limits. Extramucosal spaces appear within normal limits. No evidence of a tonsillar or peritonsillar abscess. Glands: The parotid and submandibular glands appear normal. Thyroid gland demonstrates no discrete nodules at. Miscellaneous: Visualized brain and orbits appear normal. Lung apices demonstrate irregular nodule in the right apex measuring up to approximately 0.5 cm. Superficial soft tissues appear normal. Bones: No suspicious bony lesions. Visualized sinuses and mastoids appear unremarkable. IMPRESSION: 1. Mild mucosal thickening in the oropharynx with associated mild luminal narrowing. No discrete mass lesion or fluid collection in the neck. 2. Mildly prominent bilateral cervical lymph nodes are nonspecific but likely reactive. 3. Irregular small nodule in the right lung apex. Other findings represent scarring, a small neoplasm cannot be excluded. Recommend followup chest CT in 6 months to demonstrate stability if clinically indicated. Dictated by: Gorge Kang M.D. on 06/01/2019 at 17:07 Approved by: Gorge Kang M.D. on 06/01/2019 at 17:14
--- NOTE | 2019-06-01 17:48 | ST.IPIE ---
Visit Care Team Role Provider Type Hermelindo Muller MD Other Providers Physician Specialty: Ear, Nose, Throat Address: [address] [place] [address], [id number] Email: [email or web address] JACQUELYN Meade Emergency Provider Advanced Customer Engineer Specialty: FP Address: [address] [place] [address], [id number] Email: Ambrosio Joseph MD Admit Provider Physician Attending Provider Primary Care Provider Specialty: Family Practice Address: [address] [place] [address], [id number] Email: [email or web address] Past Medical History (Last Updated 05/30/19 @ 12:31 by JACQUELYN Meade) No significant past medical history (Acute Medical) ST IP 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 Start: 06/01/19 16:51 Freq: Status: Active Protocol: Document 06/01/19 16:51 MALIK (Rec: 06/01/19 17:47 MALIK [id number]) Clinical Swallow Evaluation Session Time Visit Start Time 16:05 Visit Stop Time 16:50 Total Visit Minutes 45 Referral Referring Physician JACQUELYN Meade Reason for Referral Difficulty swallowing Setting Assessment Location Acute Care Visit Type Note Type Initial Evaluation Next Note Type Next Note Type Treatment Note Patient Information Identification Type Name,ID Card History This 53-yr-old male experienced an allergic reaction, substance unclear, on FridayMay 28 and received steroid treatment. He then acquired oral and apparently pharyngeal thrush creating difficult and painful swallowing, coughing, speaking, and voice production. Since then, he has been able to tolerate swallowing only occasional small sips of milk. In ED, the pt has received lidocaine, which has eased the pain. The pt has been managing secretions and phlegm primarily with suction. Chest x-ray revealed clear lungs, no pleural effusions or pneumothorax, no acute cardiopulmonary disease process. Subjective Observations The pt was awake, alert and sitting at edge of bed with his sister present throughout the evaluation. Both his sister and he provided case history supplemental to Nsg reports. The pt's speech was imprecise but intelligible. The pt had recently (within ~30 min) self-administered lidocaine. He reported feeling the best he had felt since Friday but continued with moderate oral and pharyngeal pain. He was agreeable to oral trials, which were administered before and after additional dose of lidocaine. Evaluation Liquids Trialed Thin,[place] Solids Trialed Puree Administration Type Tea Spoon,Cup Single Sip,Self- Feeding Oral Impairment Severely Impaired Oral Strategies Upright at 90 degrees, Controlled Bite/Sip Size,Other Oral Phase Comments Oral Peripheral Exam: Symmetrical features. Thrush present and dispersed throughout oral cavity, most prominently on hard palate. Also present on buccal mucosa, faucial pillars, and uvula. Lingual trembling present at rest and upon lingual movements. Lingual ROM, strength, and coordination is reduced. Labial and buccal ROM and coordination are WFL; however, pt reports pain with all movement of oral musculature. Soft palate elevates upon phonation. Significantly reduced hyolaryngeal elevation and excursion observed via palpation with attempt at volitional swallow. Pt has natural dentition in good condition. Oral Phase: Severe impairment of bolus formation and a/p propulsion present secondary to pain with lingual movements , requiring pt to tilt head back to initiate swallow with both liquid and solid. Greater effort required with 1/2 tsp pudding than with liquid. Mild -moderate oral residue of liquid present. Pt required 2- 3 swallow attempts per bolus to clear oral cavity. Pharyngeal Impairment Severely Impaired Pharyngeal Strategies Sitting Upright (90 deg),Small Bites and Sips Pharyngeal Phase Comments Volitional swallow of saliva was incomplete, and wet vocal quality was perceived intermittently prior to administration of oral trials, indicating compromised airway and penetration of saliva. All pharyngeal swallows of oral trials were significantly effortful and reported by pt to be painful. Multiple swallows per bolus were required. Consistent immediate and delayed throat clearing was present with thin liquid. Pt reported sticking sensation with both 1/2 tsp trial of pudding and with NTL which did not clear with subsequent liquid wash or dry swallows and required suction. Following consumption of lidocaine, the pt reported decreased pain and attempted swallow of single sip NTL. He produce immediate strong cough upon swallow. Trials were discontinued for pt safety and comfort. Findings Dysphagia Type Severe oral and pharyngeal Rehabilitation Potential Good Impressions The pt presents with severe oral and pharyngeal dysphagia secondary to pain stemming from oral and pharyngeal thrush. Suspect thrush may extend to larynx and vocal folds. Dysphagia is characterized by significantly reduced muscular coordination and ROM impairing oral formation and transport of bolus, airway protection with oral intake and saliva, and clearance or oral and pharyngeal residue. The pt experiences relief of pain with lidocaine; however, numbing of tissue appears to be detrimental to pharyngeal sensory input and to decrease responsiveness necessary for airway closure during swallow. The pt is at high risk of aspiration and is not safe for oral intake at this time. Recommend NPO status with exception of medications, and frequent use of suction to manage saliva in order to reduce risk of aspiration of bacteria with saliva. Diet Recommendations Liquids Order NPO Diet Order NPO Medication Recommendations As Tolerated,One at a Time Treatment Plan Placement Recommendations after Home Discharge Appropriate for Therapy Yes Therapy Recommendations Ongoing assessment of swallow function and safety. Assessment and training of compensatory swallow strategies. Pt/Family education. Dysphagia Goals The pt will demonstrate swallow safety adequate to safely resume oral intake. 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
[2019-06-01] MEDS: dexAMETHasone 20 MG in SODIUM CHLORIDE 0.9% 50 ML 208 ML IV (18:07)
--- NOTE | 2019-06-01 18:07 | PM.HP.1 ---
History of Present Illness History of Present Illness Date Patient Seen: 06/01/19 Time Patient Seen: 18:07 Chief complaint: thresh Narrative: Laryngeal edema. Patient admitted through the ER. Patient again get ill on Friday lab again have some swelling of his face difficulty swallowing disorder felt unusual. Apparently his female friend had similar symptoms but not quite severe. Patient went to the local emergency room there was thought to be having some for anaphylactic reaction and was treated with some steroids apparently tapering dose oral steroids and antihistamines. He was given epinephrine shot also. Apparently the following day did get better I however on Friday seem to get worse and he went to the ER they thought he had thrush put on nystatin. Since then he has got progressing gotten worse increasing pain increasing pain in his mouth and throat. Difficulty swallowing actually has difficult time managing his own saliva. He has had no cough he has had no URI symptoms otherwise. Has had a fever today u 101 No vomiting no diarrhea as stated no shortness of breath no respiratory compromise whatsoever mainly and only swallowing and pain. Patient History Medical History No significant past medical history (Acute) Surgical History No pertinent past surgical history (Acute) Social History Smoking Status: Never smoker Family & Social History Safety & Behavioral: Feels Safe in Current Yes Environment Tobacco & Substance use: Smoking Status Never smoker alcohol intake frequency holiday/special occasion Substance Use Type does not use Meds Home Medications and Allergies Home Medications Medication Instructions Recorded Confirmed Type nystatin 5 ml PO QID 14 Days #280 ml 05/30/19 06/01/19 Rx hydrocodone-acetaminophen 1 - 2 tab PO Q6H PRN 06/01/19 06/01/19 History Allergies Allergy/AdvReac Type Severity Reaction Status Date / Time No Known Drug Allergies Allergy Verified 06/01/19 11:23 Review of Systems Review of Systems ROS Unobtainable: All systems reviewed & are unremarkable except as noted in HPI and below Exam Vital Signs (past 8 hours): - 06/01/19 11:19 06/01/19 11:58 06/01/19 12:30 Temperature 100.3 F H 100.3 F H Pulse Rate 116 H 96 H Respiratory Rate 22 15 Blood Pressure 155/103 H Blood Pressure [Right Arm] 143/101 H Pulse Oximetry 97 97 06/01/19 13:05 06/01/19 13:16 06/01/19 13:45 Temperature 100.0 F H Pulse Rate 92 H 98 H Respiratory Rate 14 17 Blood Pressure Blood Pressure [Right Arm] 154/96 H 164/99 H Pulse Oximetry 97 99 06/01/19 14:10 06/01/19 14:37 06/01/19 15:15 Temperature 100.3 F H Pulse Rate 103 H 105 H Respiratory Rate 18 16 Blood Pressure Blood Pressure [Right Arm] 145/95 H Pulse Oximetry 100 95 06/01/19 16:17 06/01/19 18:00 Temperature Pulse Rate 103 H 98 H Respiratory Rate 22 20 Blood Pressure Blood Pressure [Right Arm] 145/100 H Pulse Oximetry 96 100 Oxygen Delivery Method Room Air Narrative Exam Narrative: Patient examined and a gurney in the room [facility] emergency room he appears in no distress. He speaks with ?hot potato speech and ?. And he has drooling somewhat. HEENT is normal except for his oropharynx is tongue is markedly markedly edematous a has a thick exudate over entire inside of his mouth tonsillar pillars of the tongue underneath the tongue is got a yellowish exudate. The uvula is midline it is minimally edematous. The tonsillar pillars appear to be symmetric and not compromise area of any significance. He has enlarged cervical lymph nodes that are tender. Lungs are entirely clear. Cardiac exam regular rhythm no murmur gallop. Abdominal exam is no hepatosplenomegaly no masses no tenderness. Calves are nontender. Neurologic exam is physiologic Objective Labs Result Diagrams: 06/01/19 11:36 06/01/19 11:36 Labs: Laboratory Results - last 24 hr 06/01/19 06/01/19 06/01/19 11:36 11:36 11:36 WBC 12.1 H RBC 4.49 L Hgb 14.0 Hct 40.9 L MCV 91.1 MCH 31.2 MCHC 34.3 RDW 12.5 Plt Count 186 Neut % (Auto) 78.3 H Lymph % (Auto) 10.2 L [place] % (Auto) 10.9 Eos % (Auto) 0.3 L Baso % (Auto) 0.3 Neut # (Auto) 9500 H Lymph # (Auto) 1200 [place] # (Auto) 1300 H Eos # (Auto) 0 Baso # (Auto) 0 Sodium 139 Potassium 3.5 Chloride 102 Carbon Dioxide 29 BUN 17 Creatinine 1.10 Estimated GFR > 60.0 BUN/Creatinine Ratio 15.5 Glucose 116 H Lactate 0.7 Calcium 9.5 Total Bilirubin 0.9 AST 32 ALT 26 Alkaline Phosphatase 62 Total Protein 7.8 Albumin 4.3 Globulin 3.5 Albumin/Globulin Ratio 1.2 Procalcitonin Monoscreen Influenza A & B (PCR) 06/01/19 06/01/19 06/01/19 11:36 11:36 12:05 WBC RBC Hgb Hct MCV MCH MCHC RDW Plt Count Neut % (Auto) Lymph % (Auto) [place] % (Auto) Eos % (Auto) Baso % (Auto) Neut # (Auto) Lymph # (Auto) [place] # (Auto) Eos # (Auto) Baso # (Auto) Sodium Potassium Chloride Carbon Dioxide BUN Creatinine Estimated GFR BUN/Creatinine Ratio Glucose Lactate Calcium Total Bilirubin AST ALT Alkaline Phosphatase Total Protein Albumin Globulin Albumin/Globulin Ratio Procalcitonin 0.11 Monoscreen Negative Influenza A & B (PCR) Negative labs reviewed as above of note is elevated white blood cell count. Chest x-ray is normal. Soft tissue CT is done that shows meal mucosal thickening and edema of the mucosa with no actual mass and no significant narrowing of the airway. Questionable right upper lobe nodule need to follow up at a later date. Assessment & Plan Assessment & Plan narrative: Patient has significant laryngeal edema with glossitis and stomatitis. This seems to be more like a bacterial infection clearly more so than just the yeast/thrush infection. Unclear whether not this is any kind of allergic response but seems almost certainly to be infectious due to the elevated white count the fever and the or pharyngeal exudate that has been cultured. Phone call discussion with Dr. roman around ear nose and throat consulting recommend Decadron 20 mg initially and Unasyn which be given 3.5 g every 6 hours per protocol. He did seem to get some improvement from inhaled bronchodilators per respiratory therapy will be ordered every couple hours as needed. Patient will be placed on desk monitor. Continues O2 saturations. He does not seem to have any respiratory compromise at this time presumably large dose of Decadron well within the swelling cut down likelihood in any significant respiratory compromise. The above was communicated with Dr. Polk who is on-call tonight.
[2019-06-01] MEDS: SODIUM CHLORIDE 0.9% 1,000 ML 100 ML IV ×2 (18:08→21:30)
[2019-06-01] MEDS: MORPHINE 2 MG/ML INJ IV (18:15)
[2019-06-01] MEDS: AMPICILLIN/SULBACTAM 3 GM 3 GM in SODIUM CHLORIDE 0.9% 100 ML IV (21:29)
[2019-06-01] MEDS: DEXAMETHASONE 4 MG/ML VIAL 5 MG IV (22:56)
[2019-06-02] VITALS (12 sets, daily range): BP systolic 133–167; BP diastolic 80–102; PULSE 74–94; RESP 16–18; TEMP 36.4–37.3; O2SAT 95–99
--- NOTE | 2019-06-02 00:15 | PC.NURSE ---
1900- Pt arrived to room 206 from ED via bed. A/O x4 98%RA, LS clear. tele in place with NSR 99 @ 1999. HR tachycardic throughout shift trending 98 to 116. RFA NS @ 100 + Unasyn. Pt unable to speak, using pen and paper to communicate needs, and sister rooming in and able to give information if needed. BRP to void SBA. New orders for dilaudid 0.5mg, ketorolac 15mg MAX 4 doses, duo-neb Q-6hr PRN. Pt's palate,tongue, sublingual thrush, reports throat inflamed and hard to swallow. Speech Tx failed, pt NPO status. Call light in reach.
[2019-06-02] MEDS: DEXAMETHASONE 4 MG/ML VIAL 5 MG IV ×4 (00:21→17:40)
[2019-06-02] MEDS: HYDROMORPHONE 0.5 MG INJ IV ×10 (00:28→22:59)
[2019-06-02] MEDS: KETOROLAC 15 MG/ML VIAL IV ×4 (00:37→19:25)
[2019-06-02] MEDS: AMPICILLIN/SULBACTAM 3 GM 3 GM in SODIUM CHLORIDE 0.9% 100 ML IV ×4 (03:07→21:03)
--- NOTE | 2019-06-02 04:23 | PC.NURSE ---
Pt has been in pain this night. 0.5mg Dilaudid Q2 given for pain, seems to be helping take the edge off and instead of 6/10 it's down to 4-5/10 Toradol scheduled Q6. . Pt has a tough time talking because of mouth pain and uses a pen and paper. Sister is rooming in to help w/ communication. Pt has been tachy and hypertensive this night 90's. Pt Lung sounds are clear bilaterally. Pt is clearing secretions and debris w/ yankauer suction. Pt has thrush in mouth and tongue. Pt is NPO.
[2019-06-02] MEDS: SODIUM CHLORIDE 0.9% FLUSH 10 ML IV ×3 (05:37→06:52)
[2019-06-02 06:01] LABS: Add Manual Diff / Slide Review NO; Basophils Absolute Auto 0 /uL (0-100); Eosinophils Absolute Auto 0 /uL (0-450); Hemoglobin 13.8 g/dL (13.5-17.5); Lymphocytes Absolute Auto 600 /uL (1100-4500); Mean Corpuscular HGB Conc 35.4 % (30-36); Mean Corpuscular Volume 90.5 fL (80-100); Monocytes Absolute Auto 100 /uL (0-900); Monocytes Percent Auto 1.5 % (3-14); Neutrophils Absolute Auto 7600 /uL (1500-7000); Neutrophils Percent Auto 91.5 % (50-75); Platelet Count 189 X10^3/uL (150-400); Red Cell Distribution Width 12.5 % (11.6-14.8); White Blood Cell Count 8.3 X10^3/uL (4.5-11.0)
--- NOTE | 2019-06-02 08:12 | PM.PN.1 ---
Subjective Subjective Date Patient Seen: 06/02/19 Time Patient Seen: 08:12 Interval history: Laryngeal edema. Patient he is feeling somewhat better although minimally so. Still having difficult times managing his own saliva. Primarily because of pain it causes a fair amount of pain when he swallows so he refuses to and uses the suction. Requiring frequent Dilaudid for pain relief. No respiratory he the symptoms. Speaking somewhat clear and feeling better in that perspective. No vomiting no abdominal pain. He has not had a bowel movement for 4 days because he has not been eating anything. He is having normal urine output however. Not having any wheezing or any breathing difficulties did not require any respiratory therapy for his since last night in the emergency room. Exam Vital Signs (past 8 hours): - 06/02/19 00:18 06/02/19 00:20 06/02/19 00:47 Temperature 98.4 F Pulse Rate 94 H Respiratory Rate 16 Blood Pressure 146/101 H 167/102 H Pulse Oximetry 97 98 06/02/19 01:30 06/02/19 05:38 Temperature 97.5 F L Pulse Rate 88 Respiratory Rate 16 Blood Pressure 139/80 145/97 H Pulse Oximetry 99 Oxygen Delivery Method Room Air Oxygen Flow Rate 0 Narrative Exam Narrative: The patient is sitting upright in his hospital bed with 2 female support people at his bedside. He actually looks more alert looks less distress today than he did last night. He has no respiratory distress evident. Oxygen saturations have remained normal. His oropharynx is examined and the x-ray that was reassess today is pretty well gone. Mucous membranes of his buccal mucosa tongue and posterior pharynx is still are inflamed but the above stated the x-ray has pretty well resolved. He has some prominent vessels underneath his tongue that her somewhat inflamed. Cervical lymph nodes are copy lathe tender. Lungs are clear. Objective Labs Result Diagrams: 06/02/19 05:35 06/01/19 11:36 Labs: Laboratory Results - last 24 hr 06/01/19 06/01/19 06/01/19 11:36 11:36 11:36 WBC 12.1 H RBC 4.49 L Hgb 14.0 Hct 40.9 L MCV 91.1 MCH 31.2 MCHC 34.3 RDW 12.5 Plt Count 186 Neut % (Auto) 78.3 H Lymph % (Auto) 10.[address] % (Auto) 10.9 Eos % (Auto) 0.3 L Baso % (Auto) 0.3 Neut # (Auto) 9500 H Lymph # (Auto) 1200 [place] # (Auto) 1300 H Eos # (Auto) 0 Baso # (Auto) 0 Sodium 139 Potassium 3.5 Chloride 102 Carbon Dioxide 29 BUN 17 Creatinine 1.10 Estimated GFR > 60.0 BUN/Creatinine Ratio 15.5 Glucose 116 H Lactate 0.7 Calcium 9.5 Total Bilirubin 0.9 AST 32 ALT 26 Alkaline Phosphatase 62 Total Protein 7.8 Albumin 4.3 Globulin 3.5 Albumin/Globulin Ratio 1.2 Procalcitonin Monoscreen Influenza A & B (PCR) 06/01/19 06/01/19 06/01/19 11:36 11:36 12:05 WBC RBC Hgb Hct MCV MCH MCHC RDW Plt Count Neut % (Auto) Lymph % (Auto) [place] % (Auto) Eos % (Auto) Baso % (Auto) Neut # (Auto) Lymph # (Auto) [place] # (Auto) Eos # (Auto) Baso # (Auto) Sodium Potassium Chloride Carbon Dioxide BUN Creatinine Estimated GFR BUN/Creatinine Ratio Glucose Lactate Calcium Total Bilirubin AST ALT Alkaline Phosphatase Total Protein Albumin Globulin Albumin/Globulin Ratio Procalcitonin 0.11 Monoscreen Negative Influenza A & B (PCR) Negative 06/02/19 05:35 WBC 8.3 RBC 4.30 L Hgb 13.8 Hct 39.0 L MCV 90.5 MCH 32.0 MCHC 35.4 RDW 12.5 Plt Count 189 Neut % (Auto) 91.5 H Lymph % (Auto) 7.[address] % (Auto) 1.5 L Eos % (Auto) 0.0 L Baso % (Auto) 0.0 Neut # (Auto) 7600 H Lymph # (Auto) [address] # (Auto) 100 Eos # (Auto) 0 Baso # (Auto) 0 Sodium Potassium Chloride Carbon Dioxide BUN Creatinine Estimated GFR BUN/Creatinine Ratio Glucose Lactate Calcium Total Bilirubin AST ALT Alkaline Phosphatase Total Protein Albumin Globulin Albumin/Globulin Ratio Procalcitonin Monoscreen Influenza A & B (PCR) labs from today is reviewed reviewed of note he had significant his white count has normalized to 8300. Review of culture of his oropharynx shows some mixed ran final result forthcoming. Assessment & Plan Assessment & Plan narrative: Patient has improved from his laryngeal edema/glossitis/stomatitis. Etiology is still questionable. Again this does not appear to be a yeast. Based on the culture of the appearance yesterday it seemed like is likely to be a bacterial infection. Patient clearly has responded to the steroids and the antibiotics as stated above. Discussed case with Dr. Casarez have his electromechanical technician who will see patient that noon time today considering endoscopy. Patient self has had no bowel movement but he is no concerned does not feel any intervention is appropriate at this time despite the recommendation by his support people. No change in treatment for the time being with Decadron 5 mg IV every 6 hours Unasyn 3.5 mg every 6 hours and IV fluids. Speech therapy forthcoming but I suspect they will recommend him not eat until he has improvement of the pain. Quality VTE Deep Vein Thrombosis/Pulmonary Embolism Present on Admission: No
[2019-06-02] MEDS: ENOXAPARIN 40 MG/0.4 ML SYRINGE SUBCUT (10:02)
[2019-06-02] MEDS: SODIUM CHLORIDE 0.9% 1,000 ML 100 ML IV ×2 (10:17→21:02)
--- NOTE | 2019-06-02 10:21 | CM.DANOTE ---
DCP: Case received, EMR reviewed and met with patient. Introduced self and role. Was able to obtain some history and baseline health information from patient. DCP assessment/template completed with information currently available. Patient is a 53 year old male who admitted yesterday afternoon to the care of the hospitalist team. PCP: Dr. Joseph. Payer: confirmed: [facility]. Patient came to the hospital via private vehicle secondary to mouth discomfort, and swelling. Patient had been on medication for allergic reaction treated in another clinic,and was also treated for Thrush. Patient holds diagnosis of Laryngeal edema/Stomitis. Patient has been NPO, secondary to swelling and discomfort. Speech therapy is seeing patient. Patient is also on Decadron, and being monitored for any cardiac issues. Met briefly with patient in his room. He is able to talk with difficulties. Patient has a significant other named Norma, and he works for the [employer]. His significant lives in [place]. P: DCP to continue to follow patient and be available for any resources. Patient to remain here in hospital until medically stable, and swelling decreases, and can swallow with no difficulties. Jordyn Patel RN/Refractory Furnace Designer
--- NOTE | 2019-06-02 10:33 | SLP.IPNOTE ---
Stopped in to see pt. he reports feeling better. Hyolaryngeal elevation improved per palpation and pt report. Dr. Muller, ENT to see pt around noon today. Will hold of ST treatment until ENT results are known.
--- NOTE | 2019-06-02 12:34 | PC.NURSE ---
Addendum entered by Shu Tan R.N. 06/02/19 14:43: GI/PAIN - Zena from speech in this afternoon for eval, pt took a few small bites yogurt and sips lukewarm water, managed saliva, continues to report burning pain when trying po and throughout shift, req iv dilaudid q2, given 0.5mg iv. Original Note: AM NOTE - pt is alert, hob elev 90 degrees, no rr distress, 02 sat 99% ra, bs clear, hr 90, pt reports continued pain 4/10 when trying swallow secretions, has bedside yankauer as needed, and light mendoza thin fluid in cannister, Dr. Joseph in this am and states mucosa appearance has much improved, no sloughing noted this am, white noted at roof mouth and redness under tongue, pink uvula, pt is anxious regarding pain and is requesting dilaudid every 2 hours, discussed steroids and abx, Dr. Muller in and scoped upper airway area at bedside, pt did gag but tolerated, oral care and suctioning for secretions provided, 02 sat maintained 98-99% during brief procedure, per continue meds as ordered by Dr. Joseph and he will call him at his office, later pt up standby ambul br, per icu, hr briefly tachy 120, when returned rest, hr quickly ret 88.
--- NOTE | 2019-06-02 13:50 | OT.IP.TRT ---
Current Diagnoses Other diseases of pharynx (06/01/19) Occupational Therapy Treatment Note M3 OT- IP Subjective and Pain Start: 06/02/19 13:46 Freq: Status: Active Protocol: Document 06/02/19 13:50 PJM (Rec: 06/02/19 13:55 PJM [id number]) OT- Subjective Occupational Therapy Visit Type Type Administrative Note Visit Start Time 13:50 Notes OT referral received and chart screened on this 53 yr old male admitted with severe oral thrush vs other bacterial infection. Oral pain is interfering with pt's ability to swallow. Pt has been seen by S.T. and ENT. Pt up in room with SBA per RN. No OT needs identified for this admission. Please re-order OT services if pt's condition changes. No charge.
--- NOTE | 2019-06-02 15:44 | ST.IPCSEOM ---
Visit Care Team Role Provider Type Hermelindo Muller MD Other Providers Physician Specialty: Ear, Nose, Throat Address: [address] [place] [address], [id number] Email: [email or web address] JACQUELYN Meade Emergency Provider Advanced Computer Operations Supervisor Specialty: Address: [address] [place] [address], [id number] Email: Ambrosio Joseph MD Admit Provider Physician Attending Provider Primary Care Provider Specialty: Family Practice Address: [address] [place] [address], [id number] Email: [email or web address] Current Diagnoses Other diseases of pharynx (06/01/19) Past Medical History (Last Reviewed 06/01/19 @ 18:35 by JACQUELYN Meade) No significant past medical history (Acute Medical) Speech-Language Pathology Swallow Evaluation EDUCATION TECHNICIAN Clinical Swallow Evaluation Start: 06/01/19 16:51 Freq: Status: Active Protocol: Document 06/02/19 14:41 LNK (Rec: 06/02/19 15:07 LNK [id number]) Clinical Swallow Evaluation Session Time Visit Start Time 13:00 Visit Stop Time 13:30 Total Visit Minutes [address] Joseph Setting Assessment Location Acute Care Visit Type Note Type Re-Evaluation Patient Information Identification Type Name History This 53-yr-old male experienced an allergic reaction, substance unclear, on FridayMay 28 and received steroid treatment. He then acquired oral and apparently pharyngeal thrush creating difficult and painful swallowing, coughing, speaking, and voice production . ST evaluation in the Ed indicated the pt presented with severe oral and pharyngeal dysphagia secondary to pain stemming from oral and pharyngeal swelling/pain. ST recommended NPO status with exception of medications, and frequent use of suction to manage saliva in order to reduce risk of aspiration of bacteria with saliva. Subjective Observations pt was upright in his bed with at bedside. Pt reported that he is feeling better and was able to swallow. Pt still c/o pain with swallowing. Evaluation Liquids Trialed Thin Solids Trialed Puree Administration Type Tea Spoon,Self-Feeding Oral Strategies Upright at 90 degrees Oral Phase Comments Informal observation of oral structures and function. Continued with mildly dysarthric speech secondary to swelling and pain. Redness of the tissues with some white -lakesha patches observed within the mouth. Dentition good and in good condition. Pharyngeal Phase Comments Hyolaryngeal elevation and excursion of the hyoid was WFL . Pt remarked that it was much better. No sensation of bolus getting stuck. Pt continued to c/o pain (e.g., 3 /10) with swallowing; however he stated that swallowing was much improved. No wetness of the voice, no choke, no cough observed. Findings Dysphagia Type Mild oropharyngeal dysphagia secondary to pain with swallowing. Rehabilitation Potential Excellent Impressions With the exception of the pain reported buy the patient with swallowing, pt's swallow has improved. His swallowing is essentially WFL. Pt was provided with ice water, which was too cold, warm water and yogurt. he reported that the swallowing was a little painful; however, he was able to swallow. Diet Recommendations Liquids Order Thin Diet Order Dysphagia Blenderized Medication Recommendations As Tolerated Comments Advance diet as tolerated. Aspiration Precautions Recommended Precautions Upright at 90 Degrees Treatment Plan Placement Recommendations after Home Discharge Appropriate for Therapy No Therapy Recommendations No swallowing therapy indicated. Swallowing expected to return to normal with pain /infection reduction Referrals/Other Recommended Referrals Primary Care Physician
--- NOTE | 2019-06-02 17:55 | CONS_ITS ---
DATE OF SERVICE: 06/02/2019 CHIEF COMPLAINT: Dysphagia, throat pain, mouth swelling. HISTORY OF PRESENT ILLNESS: A 53-year-old male, otherwise healthy, was admitted from the emergency room yesterday for severe, possible stomatitis. He denies any prior issues until 5 days ago, possibly after drinking a beer, he and his girlfriend noticed sudden-onset facial and tongue swelling, his persistent, although hers improved. ER visit treated for anaphylaxis and discharged home. Pain then developed in his throat and mouth. Seen the next day and diagnosed with evidently fairly classic severe oral thrush. Pain then progressed leading to emergency room evaluation yesterday and admission. He found it progressively difficult to swallow with increasing pain, unable to tolerate his secretions. No airway issues, however. No prior similar possible allergic reactions, no recent sick contacts or exotic travel, no prior issues with other ENT problems. He received 20 mg of IV Decadron upon admission and pain is currently controlled with Dilaudid and Toradol with obvious improvement. Per his sister, at the bedside today, the intraoral appearance of sloughing skin has also markedly improve overnight. He is able to tolerate his secretions but remains significantly difficult to swallow, unable to complete a bedside swallow evaluation yesterday. CT neck with contrast from 06/01/2019 reviewed in detail, no obvious pathology. White blood cell count 12.1 on admission, now 8.3 today but significant left shift, 91% neutrophils. Influenza negative. Currently being treated with Unasyn and Decadron 5 mg q.6 h. Presumed intraoral cx mixed ran. PAST MEDICAL HISTORY: Reviewed on the admit H&P. MEDICATIONS: Reviewed on the admit H&P. ALLERGIES: REVIEWED ON THE ADMIT H&P. SOCIAL HISTORY: Reviewed on the admit H&P. REVIEW OF SYSTEMS: Reviewed on the admit H&P. FAMILY HISTORY: Reviewed on the admit H&P. PHYSICAL EXAM: VITAL SIGNS: On the chart. GENERAL: Well-developed, well-nourished male, reluctant to talk with slightly muffled voice but tolerating secretions and alert. Speech is understandable. HEENT: Head is normocephalic, atraumatic. Face without obvious swelling or erythema today. External ears are normal. Clear ear canals. Normal tympanic membranes. Clear middle ears. Nose: External nose is normal. Patent nostrils anteriorly. Normal anterior nasal cavity with healthy mucosa. No obvious lesions. Oral cavity/oropharynx: Dry chapped lips, generalized mucosa of the tongue and oral cavity is irritated, some superficial white and red patches but no obvious sloughing of mucosa today, no obvious deep ulcerations or masses. The irregular appearance extends onto the uvula and soft palate. Unable to perform indirect nasal pharyngoscopy and indirect laryngoscopy due to hyperactive gag reflex and pain. NECK: Soft and nontender. No palpable masses. PROCEDURE: Flexible laryngoscopy. PREOPERATIVE DIAGNOSIS: Stomatitis, pharyngitis, possible laryngitis/esophagitis, presumed bacterial, dysphagia and throat pain POSTOPERATIVE DIAGNOSIS: Stomatitis, pharyngitis, possible laryngitis/esophagitis, presumed bacterial, dysphagia and throat pain. SURGEON: Hermelindo Muller MD ANESTHESIA: None. FINDINGS: Healthy mucosa of the right nasal cavity and nasopharynx, nasopharyngeal surface of the soft palate, normal base of tongue, vallecula, epiglottis, with some pooling of saliva in the right greater than left piriform sinuses. Mild erythema of the arytenoids but normally mobile true vocal cords without lesion or severe edema, no evidence of thrush. COMPLICATIONS: None. INDICATIONS: As above. ASSESSMENT: 1. Acute presumed bacterial stomatitis/pharyngitis/laryngitis, possible esophagitis. 2. Dysphagia. 3. Throat pain. 4. Possible initial anaphylactic reaction. PLAN: As discussed with the patient and Dr. Joseph, evidence points most likely to a bacterial process, recommend continuing the IV Unasyn and scheduled Decadron along with pain control. I expect him to be able to swallow over the next 24 hours and hopefully be stable for discharge. As an outpatient, I would like to examine his larynx once again, may be a candidate for a swallow study if there are persistent problems. Await further culture results, otherwise would assume Augmentin and prednisone upon discharge. Consider a decadron rinse and spit if oral lesions/irritation persists. The patient and his sister, as well as Dr. Joseph, agree with the plan, understand, and are appreciative. Derick Morgan - KH/fn/ab doc#: [id number]/job#: [id number] dd: 06/02/2019 14:29:00 dt: 06/02/2019 17:32:00 DICTATING MD/COPIES TO: Hermelindo Muller MD; Ambrosio Joseph MD COPIES MNE: HENOK; KATELYNN
--- NOTE | 2019-06-02 22:08 | PC.NURSE ---
Pt reports feeling better today, able to speak, had a few bites of soft food with speech eval good, advanced to dysphagia diet, but pt using much caution with advancing diet. Evelin next to pt in bed and self suctions. RFA NS @ 100 with Unasyn. SBA to BRP to void in the urinal. Sister rooming in. Pt requests to have Dilaudid 0.5mg IVP Q-2hr, and to be woken up if asleep. Pt had 200mL liquid stool this AM. Pt placed on contact isolation during preliminary mouth cultures pending. Telemetry in place with NSR x2. Bed alarm on and call light in reach.
[2019-06-03] VITALS (9 sets, daily range): BP systolic 136–149; BP diastolic 87–95; PULSE 63–118; RESP 12–16; TEMP 36.4–37.6; O2SAT 95–98
[2019-06-03] MEDS: DEXAMETHASONE 4 MG/ML VIAL 5 MG IV ×4 (00:24→17:27)
[2019-06-03] MEDS: KETOROLAC 15 MG/ML VIAL IV ×4 (00:25→19:36)
[2019-06-03] MEDS: HYDROMORPHONE 0.5 MG INJ IV ×8 (01:03→21:48)
--- NOTE | 2019-06-03 01:36 | PC.NURSE ---
Addendum entered by Lizett Patel R.N. 06/03/19 06:40: States pain is not really improving with current pain regimen. States he had 1 dose of magic mouthwash earlier this hospitalization which really helped. Will check with MD when he/she rounds. Addendum entered by Lizett Patel R.N. 06/03/19 05:07: Has been taking IV Dilaudid q2h for 4/10 pain as he states I don't want to wake up in a lot of pain. States the best the pain has gotten was when he earlier received scheduled Toradol 30 minutes prior to the IV Dilaudid. Original Note: Patient is alert and oriented. Breath sounds CTA with RA sat of 97%; on continuous oximetry. HRR; telemetry reading was SR. Denies nausea. BT present and abdomen is soft. Voiding per urinal and denies dysuria, frequency or urgency. Is able to turn self. Up to bathroom with SBA. States mouth/tongue/throat swelling much improved. Tongue is reddened and raw looking on both sides. White plaques in throat and upper palate. Still with swelling of lips and left side of face; patient also feels neck is still swollen. Is able to speak in complete sentences but sounds like he has a thick tongue although is understandable. States pain of tongue/throat/mouth is 4/10 and was medicated earlier with scheduled Toradol after which his pain was down to 2/10 but still requesting IV Dilaudid q2h to keep pain under control. Is on isolation for gm + cocci on mouth swab. Fall risk score is moderate but calling appropriately for assistance and sister rooming in so bed alarm is not on at this time.
[2019-06-03] MEDS: AMPICILLIN/SULBACTAM 3 GM 3 GM in SODIUM CHLORIDE 0.9% 100 ML IV ×4 (03:05→21:28)
[2019-06-03] MEDS: ENOXAPARIN 40 MG/0.4 ML SYRINGE SUBCUT (09:22)
--- NOTE | 2019-06-03 09:56 | P.PN_ITS ---
Subjective Subjective Date Patient Seen: 06/03/19 Time Patient Seen: 09:56 Interval history: Laryngeal edema. Feeling much better. Able swallow his own saliva. Saliva decreased decreased he in intensity. Still having fair amount of pain when he swallows. Feels that his mouth is very dry. Pills at a a glycerin spray helps. Additionally a medication called Magic mouthwash he would like to use a periodically. He has uses in the past. If he uses the biotin mouthwash and the Magic he is able to tolerate pills well. The goal here is to get him but comfortable knows he can tolerate pain pills, oral steroids, and oral antibiotics. Which is forthcoming Exam Vital Signs (past 8 hours): - 06/03/19 05:00 06/03/19 09:00 Temperature 97.5 F L 98.1 F Pulse Rate 67 80 Respiratory Rate 16 16 Blood Pressure 136/89 149/95 H Pulse Oximetry 97 96 Oxygen Delivery Method Room Air Oxygen Flow Rate 0 Narrative Exam Narrative: Looks more alert today than yesterday. Able to smile actually. His oropharynx shows persistence of some erythema around the on the buccal mucosa back by the molars. His tongue is slightly less inflamed underneath the tongue there is minimal inflammation. Posterior pharyngeal wall and the tonsillar pillars are still inflamed but less so the edema has decreased significantly and they there is really no exudate. Cervical lymph nodes lubricating machine tender. Objective Labs Result Diagrams: 06/02/19 05:35 06/01/19 11:36 Labs: Mouth culture shows ?normal respiratory for in ? Assessment & Plan Assessment & Plan narrative: Patient is obviously better. Less swelling less pain less inflammation. Still no obvious explanation for the so phenomenon apparently has some sore reaction and then developed secondary infection. Presumably expect her to. Tolerating pills which is our goal. We will pre medicate his mouth with medications deep requested. And will see how he does during the course of the day perhaps if tolerates everything well we can discharge this evening otherwise tomorrow or the next day pending tolerance of the above medications Quality VTE Deep Vein Thrombosis/Pulmonary Embolism Present on Admission: No
[2019-06-03] MEDS: [UNRECOGNIZED DRUG - REMARK] 1 EACH PO (12:20)
[2019-06-03] MEDS: LIDOCAINE VISCOUS 2% 30 ML, MAG HYDROX/ALUMINUM/SIMETH SUS 30 ML, NYSTATIN SUSP 3,000,0... MM ×2 (12:20→17:27)
--- NOTE | 2019-06-03 12:43 | PC.NURSE ---
AM NOTE - pt is alert, rr unlabored, bs clear and sat 98% ra, speech becoming clearer today and pt is managing secretions, continues to have difficulty eating, given 0.5mg iv dilaudid and when magic mouthwash available, pt req prior to meals and is then able to pamela po, felt he could not drink or eat w/o but was able to get down sips at lunch.
[2019-06-04] VITALS: BP 147/94; PULSE 73; RESP 16; TEMP 36.8; O2SAT 97
[2019-06-04] MEDS: KETOROLAC 15 MG/ML VIAL IV ×3 (00:01→12:15)
[2019-06-04] MEDS: AMPICILLIN/SULBACTAM 3 GM 3 GM in SODIUM CHLORIDE 0.9% 100 ML IV ×2 (03:44→11:45)
[2019-06-04 05:42] VITALS: BP 138/91; PULSE 58; RESP 16; TEMP 36.3; O2SAT 97
[2019-06-04] MEDS: DEXAMETHASONE 4 MG/ML VIAL 5 MG IV ×2 (06:19)
[2019-06-04] MEDS: SODIUM CHLORIDE 0.9% FLUSH 10 ML IV (06:23)
[2019-06-04 07:00] VITALS: O2SAT 97
--- NOTE | 2019-06-04 08:46 | PM.DS.1 ---
History of Present Illness History of Present Illness Date Patient Seen: 06/04/19 Time Patient Seen: 08:47 Chief complaint: thresh Narrative: Patient admitted through the ER. Patient again get ill on Friday lab again have some swelling of his face difficulty swallowing disorder felt unusual. Apparently his female friend had similar symptoms but not quite severe. Patient went to the local emergency room there was thought to be having some for anaphylactic reaction and was treated with some steroids apparently tapering dose oral steroids and antihistamines. He was given epinephrine shot also. Apparently the following day did get better I however on Friday seem to get worse and he went to the ER they thought he had thrush put on nystatin. Since then he has got progressing gotten worse increasing pain increasing pain in his mouth and throat. Difficulty swallowing actually has difficult time managing his own saliva. He has had no cough he has had no URI symptoms otherwise. Has had a fever today u 101 No vomiting no diarrhea as stated no shortness of breath no respiratory compromise whatsoever mainly and only swallowing and pain. {from Dr. Joseph's history and physical June 01, 2019} Discharge Providers Provider Date of admission: 06/01/19 17:34 Discharge Date: 06/04/19 Primary care physician: Ambrosio Joseph MD Consults: 06/01/19 14:27 Consult to Speech Therapy Evaluate & Treat Comment: Physician Instructions: Evaluate and treat 06/01/19 17:46 Consult to Occupational Therapy Evaluate & Treat Comment: swallow eval Physician Instructions: Evaluate and treat Consult to Physician Routine Comment: Consulting Provider: Hermelindo Muller Reason for consultation: laryngeal edema Has provider been notified: Yes Discharge provider: Rey Doyle MD Summary Hospital Course Discharge Diagnosis: 1. Severe mucositis oropharynx 2. Laryngeal edema, resolved Hospital Course: Patient is admitted by the ED after presenting with difficulty swallowing severe pain and swelling in his mouth and face. He been seen in the ED elsewhere couple of times for ongoing symptoms of began after a meal out of the area. His girlfriend who also consumed daily some of the same items had similar although very much milder symptoms He was initially diagnosed as having a candidal infection of the mouth but despite appropriate treatment he worsened and was admitted Admitting physician and ENT both felt as though patient had severe mucositis of his oropharynx likely due to some either allergic or toxic reaction to something he ingested. He was given very high dose IV steroids followed by persisting high-dose IV steroids. Was also started on IV antibiotics because of risk of infection. With his he dramatically improved over the 1st 24-36 hours. At time of discharge was off of his IV pain medicine he was able to swallow with assistance soft foods and liquids. He rated himself at 95% improved. He will be discharged to continue on a course of oral steroids as well as a course of oral antibiotics. No evidence of active infection but he is at higher than average risk based on loss of his mucous membranes etc. Status at Discharge Cognitive/behavioral status at discharge: at baseline, oriented Functional status at discharge: independent ambulation Overall status at discharge: patient is progressing back to baseline Exam Vital Signs (past 8 hours): - 06/04/19 05:42 06/04/19 07:00 Temperature 97.4 F L Pulse Rate 58 L Respiratory Rate 16 Blood Pressure 138/91 H Pulse Oximetry 97 97 Oxygen Delivery Method Room Air Oxygen Flow Rate 0 Objective Labs Result Diagrams: 06/02/19 05:35 06/01/19 11:36 Discharge Plan Discharge Plan Patient Disposition: Home Discharge Med Rec/Prescriptions Prescriptions: New dexamethasone 4 mg tablet 4 mg PO BID Qty: 10 RF: 1 amoxicillin-pot clavulanate 500-125 mg tablet 1 tab PO BID Qty: 14 RF: 0 hydromorphone 2 mg tablet 2 mg PO Q4H PRN (Reason: pain in mouth) Qty: 20 RF: 0 lidocaine HCl 2 % solution 1 applictn MM Q8H PRN (Reason: pain in mouth) Qty: 600 RF: 0 Discontinued nystatin 100,000 unit/mL suspension 5 ml PO QID 14 Days Qty: 280 RF: 0 hydrocodone-acetaminophen 5-325 mg tablet 1 - 2 tab PO Q6H PRN (Reason: pain) RF: 0 Follow up/Referrals: Ambrosio Joseph MD [Primary Care Provider] - 3-5 Days Provider Discharge Instructions Diet: Diet as Tolerated Discharge Data Primary Care Provider: Ambrosio Joseph Quality VTE Deep Vein Thrombosis/Pulmonary Embolism Present on Admission: No
[2019-06-04 09:00] VITALS: BP 139/104; PULSE 68; RESP 16; TEMP 36.1; O2SAT 96
[2019-06-04] MEDS: dexAMETHasone 4 MG TABLET PO (09:59)
[2019-06-04] MEDS: HYDROMORPHONE 2 MG TABLET PO (12:12)
--- NOTE | 2019-06-04 14:00 | DIET.PN ---
Dietary Progress Note Assessment: 53y M c mucositis and resolving laryngeal edema likely r/t contaminated sushi dinner. Pt reporting being able to eat if meds are on board, gaining an understanding of foods which are soothing and acceptable for him. Discussed increased PRO needs to heal mouth. Gave pt handout on dysphagia diet c instructions to stick with soft and acceptable foods for next week or more until sx resolve. HT: 182.8cm WT: 78.2kg BMI: 23.4 MNA: 14 Tutu: 18 Nutrition Diagnosis: Difficulty swallowing r/t allergic type reaction to food, suspecting sushi aeb pt had laryngeal edema, mucositis in mouth, difficulty talking and dysphagia c POs <50%. Diet Order: Dysphagia EER: 2300kcal, 95g PRO (1.2g/kg for mouth healing) Monitoring/Evaluations: diet tolerance
--- NOTE | 2019-06-04 14:09 | CM.DPC ---
DCP: continued : case received, EMR reviewed. Plan for home at d/c noted. Dr. Conteh has ok'd pt for home today with PCP followup 3-5 days. Hat Blocking Operator Leigh saw pt prior to d/c and went over suggested diet for next few days to help him in the recovery process.
--- NOTE | 2019-06-04 14:21 | PC.NURSE ---
DC. pt changed and packed up. PIV removed and tolerated well. Transferred to private vehicle via WC. DC instructions and prescriptions provided to pt. No questions remain.
== END 2019-06-04 14:14 | disposition home or self-care (01) | DRG 159 ==
LOC: ED 11:29 → AC 18:44
PROVIDERS: Admitting Provider Family Medicine; Emergency Provider Nurse Practitioner Family; PCP Family Medicine; Visit Provider Family Medicine
DX: K12.1 Other forms of stomatitis (principal); J38.4 Edema of larynx; T78.40XA Allergy, unspecified, initial encounter
CPT/HCPCS: 36415; 70491; 71046; 80053; 82962; 83605; 84145; 85025; 86318; 87040; 87070; 87075; 87205; 87400; 87502; 87880; 92610; 94640; 94762; 96365; 96375; 99222; 99232; 99238; 99282; 99284; J0295; J1100; J1170; J1200; J1650; J1885; J2270; Q9967

== ENCOUNTER 2019-10-14 17:13 | Emergency (ER) | payer OTHER, SELFPAY ==
[2019-06-01 17:59] VITALS: BMI 23.0
[2019-10-14] VITALS (9 sets, daily range): BP systolic 145–185; BP diastolic 82–103; PULSE 78–112; RESP 14–20; TEMP 36.8; O2SAT 96–100; BMI 23.0
[2019-10-14] MEDS: ALBUTEROL 2.5 MG/3 ML NEB (ADULT) INH (17:35)
[2019-10-14] MEDS: diphenhydrAMINE 50 MG/ML VIAL 25 MG IV ×2 (17:35→19:08)
[2019-10-14] MEDS: methylPREDNISolone 125 MG/2 ML VIAL IV (17:35)
[2019-10-14] MEDS: FAMOTIDINE 20 MG/50 ML PIGGYBACK 200 MG IV (17:36)
--- NOTE | 2019-10-14 17:48 | ED.ALLEREA ---
HPI - Allergic Reaction General Chief complaint: Allergic Reaction Stated complaint: ALLERGIC REACTION Time Seen by Provider: 10/14/19 17:40 Source: patient Mode of arrival: Ambulatory History of Present Illness HPI narrative: CC: Acute allergic reaction HPI: The patient is a 53-year-old male who has a history of severe allergies especially to shellfish. The patient had lunch and which contains shellfish. When he arrived at home this afternoon he took an Aleve for pain and discomfort and 10 minutes later felt like he had inhaled powder and developed itching burning of his eyes arm nose throat with shortness of breath without wheezing. His tongue felt swollen and thickened as well as the back of his throat. He did not take his EpiPen. He denies a history of diabetes mellitus congestive heart failure myocardial infarction asthma but admits to history of hypertension. He does not smoke cigarettes but drinks alcohol does not use any drugs. He denies any significant headache but has had a mild cough with shortness of breath and without active wheezing. He has had no abdominal pain nausea vomiting or diarrhea. He has had no other urinary symptoms. Related Data Previous Rx's Medication Instructions Recorded amoxicillin-pot clavulanate 1 tab PO BID #14 tab 06/04/19 dexamethasone 4 mg PO BID #10 tab 06/04/19 hydromorphone 2 mg PO Q4H PRN #20 tab 06/04/19 lidocaine HCl 1 applictn MM Q8H PRN #600 ml 06/04/19 triamcinolone acetonide 0.1 % 1 applictn TOP DAILY #30 gram 06/08/19 topical ointment diphenhydramine HCl [Benadryl 25 mg PO Q6H PRN #20 tab 10/14/19 Allergy] epinephrine 0.3 mg IM Q20M PRN #2 each 10/14/19 famotidine 40 mg PO DAILY #10 tab 10/14/19 Allergies Allergy/AdvReac Type Severity Reaction Status Date / Time No Known Drug Allergies Allergy Verified 10/14/19 17:20 Review of Systems Review of Systems Narrative: All review of systems were negative except for those mentioned in the history of present illness. Patient History Medical History No significant past medical history (Acute) Surgical History No pertinent past surgical history (Acute) Social History household members: significant other Smoking Status: Never smoker Smoking Status: Never smoker alcohol intake frequency: holidays/special occasions only Substance Use Type: does not use Exam Narrative Exam Narrative: PHYSICAL EXAM: CONSTITUTIONAL: Awake, Alert, Oriented, Coherent, Cooperative i appears frightening apprehensive HEAD: AT/NC EENT: PERRL, FROM of eyes, no discharge, no nystagmus bulbar conjunctivae and palpebra conjunctiva are injected. There is no drainage from the eye. No drainage from the ears, Tympanic membranes intact bilaterally, clear EAC No epistaxis or nasal drainage Oral mucosa is moist and pink, posterior pharynx is without erythema or exudate. However the soft palate and uvula appear to be mildly swollen. I did not appreciate any swelling of the tongue. NECK: Supple, no obvious JVD, Trachea is midline without stridor, no palpable LN or masses. SPINE: No gross deformity, no palpable tenderness of the cervical, thoracic, lumbar or sacral spine. No CVA tenderness. THORAX: No deformity, retractions, chest wall tenderness, subcutaneous air or crepitice. LUNGS: Clear with symmetrical breath sounds without respiratory distress HEART: Normal heart tones, regular rhythm and rate without murmur. ABDOMEN: Soft, non-tender, normal bowel sounds without guarding, rebound, rigidity or palpable mass EXTREMITIES: No edema, cyanosis, deformity or tenderness. SKIN: No rash, bruising, petechiae or purpura. No urticaria NEURO: Awake, alert, oriented, conversive, cranial nerves II-XII are symmetrical and normal, moves all 4 extremities and is ambulatory Initial Vital Signs Initial Vital Signs: Vital Signs Temperature 98.2 F 10/14/19 17:20 Pulse Rate 83 10/14/19 17:20 Respiratory Rate 16 10/14/19 17:20 Blood Pressure 176/103 H 10/14/19 17:20 Pulse Oximetry 99 10/14/19 17:20 Course Course Course Narrative: 3840 the patient is feeling much better. The patient will be watched for 30 minutes and if he is improved will be discharged. Orders Ordered: Discontinued Medications Albuterol (Ventolin) 2.5 mg INH NOW ONE Stop: 10/14/19 17:35 Last Admin: 10/14/19 17:35 Dose: 2.5 mg Documented by: DANIEL Diphenhydramine HCl (Benadryl) 25 mg IV NOW ONE Stop: 10/14/19 17:33 Last Admin: 10/14/19 17:35 Dose: 25 mg Documented by: DANIEL Diphenhydramine HCl (Benadryl) 25 mg IV NOW ONE Stop: 10/14/19 18:52 Last Admin: 10/14/19 19:08 Dose: 25 mg Documented by: ARIADNA Epinephrine HCl (Adrenalin) 1 mg IM NOW ONE Stop: 10/14/19 18:53 Last Admin: 10/14/19 19:08 Dose: 1 mg Documented by: ARIADNA Famotidine (Pepcid) 20 mg in 50 mls @ 200 mls/hr IV NOW ONE Stop: 10/14/19 17:47 Last Infusion: 10/14/19 17:48 Dose: 0 mls/hr Documented by: Admin: 10/14/19 17:36 Dose: 200 mls/hr Documented by: DANIEL Methylprednisolone (Solu-Medrol 125 Mg Vial) 125 mg IV NOW ONE Stop: 10/14/19 17:33 Last Admin: 10/14/19 17:35 Dose: 125 mg Documented by: DANIEL Vital Signs Vital signs: Vital Signs - 8 hr 10/14/19 17:20 10/14/19 17:35 10/14/19 18:33 Temperature 98.2 F Pulse Rate 83 78 86 Respiratory Rate 16 14 20 Blood Pressure 176/103 H Blood Pressure [Left Arm] 151/83 H Pulse Oximetry 99 100 98 10/14/19 19:14 10/14/19 19:36 Temperature Pulse Rate 98 H 86 Respiratory Rate 20 19 Blood Pressure Blood Pressure [Left Arm] 164/91 H 185/95 H Pulse Oximetry 98 99 Discharge Plan Departure Patient Disposition: Home Clinical Impression: Allergic reaction Qualifiers: Encounter type: initial encounter Qualified Code(s): T78.40XA - Allergy, unspecified, initial encounter Instructions: DI for Anaphylaxis, DI for Hives, DI for General Allergic Reactions Activity Restrictions/Additional Instructions: 1. Take benadryl 25 mg 4 times a day for the next 24 hours 2. Take famotidine( Pepcid) 40 mg tomorrow morning 3. Do not hesitate to taking usually or epi pens. Take if you have difficulty in breathing wheezing feel dizzy or lightheaded. 4Strategically locate your Epi-pems: 2 at home, 1 in a cool container in your automobile, 1 in your duffle bag at work 5. Follow-up with your primary care physician. Prescriptions: New famotidine 40 mg tablet 40 mg PO DAILY Qty: 10 RF: 0 diphenhydramine HCl [Benadryl Allergy] 25 mg tablet 25 mg PO Q6H PRN (Reason: allergic reaction) Qty: 20 RF: 0 epinephrine 0.3 mg/0.3 mL auto-injector 0.3 mg IM Q20M PRN (Reason: anaphylaxis) Qty: 2 RF: 0 No Action triamcinolone acetonide 0.1 % ointment 1 applictn TOP DAILY Qty: 30 RF: 5 dexamethasone 4 mg tablet 4 mg PO BID Qty: 10 RF: 1 amoxicillin-pot clavulanate 500-125 mg tablet 1 tab PO BID Qty: 14 RF: 0 hydromorphone 2 mg tablet 2 mg PO Q4H PRN (Reason: pain in mouth) Qty: 20 RF: 0 lidocaine HCl 2 % solution 1 applictn MM Q8H PRN (Reason: pain in mouth) Qty: 600 RF: 0 Referrals: Ambrosio Joseph MD [Primary Care Provider] -
--- NOTE | 2019-10-14 18:30 | PC.NURSE ---
pt report, ate lunch at 3pm, had seafood, then got home at 4pm, pt developed aches and pain , took aleve 2tabs, the pt developed 1800 with facial/tounge thickness, with bilateral eyes itching. no body rash noted. pt recieved meds, but still reporting tounge thickness and throat not better. airway patent, speaking with full and responds appropriately, able to swallow, no drooling. water provided and tolerated. spouse at bs. skin warm dry pink.
[2019-10-14] MEDS: EPINEPHrine 1 MG/ML IM (19:08)
== END 2019-10-14 21:37 | disposition home or self-care (01) ==
PROVIDERS: Emergency Provider Emergency Medicine; PCP Family Medicine
DX: T78.40XA Allergy, unspecified, initial encounter (principal)
CPT/HCPCS: 94640; 96372; 96374; 96375; 96376; 99284; J0171; J1200; J2930; J7613

== ENCOUNTER 2019-10-16 08:54 | Observation (INO) | payer OTHER, SELFPAY ==
[2019-06-01 17:59] VITALS: BMI 23.0
[2019-10-16 09:05] VITALS: BP 164/88; PULSE 93; RESP 20; TEMP 36.9; O2SAT 99; BMI 23.0
--- NOTE | 2019-10-16 09:23 | ED.ALLEREA ---
HPI - Allergic Reaction General Chief complaint: Allergic Reaction Stated complaint: Allergic reaction Time Seen by Provider: 10/16/19 09:05 Source: patient Mode of arrival: Ambulatory History of Present Illness HPI narrative: CC: questionable allergic reaction HPI: The patient is a 53-year-old male who came into the emergency department on and was evaluated for a possible allergic reaction secondary to shellfish that he ate at lunch time or the ingestion of Aleve when he arrived at home. 10 minutes after taking the Aleve he developed injection of his eyes and conjunctiva and developed periorbital soft tissue swelling. At that time he was administered Solu-Medrol Benadryl and Pepcid. The patient states that in May of 2019 he developed a severe allergic reaction which resulted in sloughing of the mucosa of his mouth tongue and esophagus resulting in stomatitis esophagitis questionably within infection. Today the patient woke up at 5:00 a.m. in the morning and felt fine. A little while later he woke up and developed severe pain and discomfort in his mouth posterior pharynx and his esophagus. His pharynx and esophagus felt raw and similar to the discomfort he experienced in May. He states that he looked at his throat and saw that he had a white discoloration of the mucosa over his soft palate posterior pharynx and tongue which was identical to what happened in May. He denies a history of autoimmune disease Crohn's disease or ulcerative colitis. He admits to feeling feverish with chills and sweats. However he denied any significant shortness of breath cough chest pain palpitations dizziness or wheezing. He denied any abdominal pain cramps nausea vomiting diarrhea or urinary symptoms. He states that he was seen by his primary care physician yesterday and was put on Pepcid prednisone hydroxyzine and discharged home. Related Data Previous Rx's Medication Instructions Recorded diphenhydramine HCl [Benadryl 25 mg PO Q6H PRN #20 tab 10/14/19 Allergy] epinephrine 0.3 mg IM Q20M PRN #2 each 10/14/19 famotidine 40 mg tablet 40 mg PO DAILY #10 tab 10/15/19 hydroxyzine pamoate 25 mg capsule 25 mg PO TID PRN #30 cap 10/15/19 prednisone 20 mg tablet 20 mg PO DAILY #9 tab 10/15/19 Allergies Allergy/AdvReac Type Severity Reaction Status Date / Time Fish Containing Products Allergy Severe Swelling Verified 10/16/19 12:31 of Lip/Tongue/Throat shellfish derived Allergy Swelling Verified 10/16/19 12:31 of Lip/Tongue/Throat Review of Systems Review of Systems Narrative: The patient's review of systems were all negative except for those mentioned in the history of present illness. Patient History Medical History No significant past medical history (Acute) Surgical History No pertinent past surgical history (Acute) Social History household members: significant other Smoking Status: Never smoker Smoking Status: Never smoker alcohol intake frequency: holidays/special occasions only Substance Use Type: does not use Exam Narrative Exam Narrative: PHYSICAL EXAM: CONSTITUTIONAL: Awake, Alert, Oriented, Coherent, Cooperative appears very uncomfortable and ill. He has a slight erythematous discoloration to his skin and face. HEAD: AT/NC EENT: PERRL, FROM of eyes, no discharge, the bulbar and palpebral conjunctiva bilaterally were injected and mildly swollen. The periorbital soft tissue especially the infraorbital soft tissue was swollen and erythematous. No epistaxis or nasal drainage. Nasal turbinates were mildly swollen but no change in the mucosal surface. Oral mucosa is moist and pink, posterior pharynx is without erythema or exudate. However, the mucosa over the soft palate posterior pharynx and tongue was a macerated white appearance that was ready to slough.. NECK: Supple, no obvious JVD, Trachea is midline without stridor, no palpable LN or masses. SPINE: No gross deformity, no palpable tenderness of the cervical, thoracic, lumbar or sacral spine. No CVA tenderness. THORAX: No deformity, retractions, chest wall tenderness, subcutaneous air or crepitice. LUNGS: Clear with symmetrical breath sounds without respiratory distress. There was no wheezing or rhonchi noted. HEART: Normal heart tones, regular rhythm and rate without murmur. ABDOMEN: Soft, non-tender, normal bowel sounds without guarding, rebound, rigidity or palpable mass EXTREMITIES: No edema, cyanosis, deformity or tenderness. SKIN: No rash, bruising, petechiae or purpura. NEURO: Awake, alert, oriented, conversive, cranial nerves II-XII are symmetrical and normal, moves all 4 extremities and is ambulatory Initial Vital Signs Initial Vital Signs: Vital Signs Temperature 98.4 F 10/16/19 09:05 Pulse Rate 93 H 10/16/19 09:05 Respiratory Rate 20 10/16/19 09:05 Blood Pressure 164/88 H 10/16/19 09:05 Pulse Oximetry 99 10/16/19 09:05 Course Course Course Narrative: 1023 review of the patient's medical records reveals that the patient has exactly the same thing that he had when he was admitted to the hospital in May. With the medications that I have administered to the patient his conjunctivae and the infraorbital soft tissue swelling and erythema has significantly improved. He still continues to have the posterior pharyngeal and tongue white arm exudate which looks like mucosa ready to slough. The [place] did significantly help his pain and discomfort. He was started on Unasyn. I will call the doctor who admits for Dr. Joseph it to consider admitting the patient observation status to see what develops since the patient presented 2 days ago with a similar or lower reaction which was thought to be an allergic reaction to either Aleve or shellfish. He is currently not having any respiratory distress or wheezing. [address] Polk. Admit observation status. After discussing the situation with the patient and reviewing his medical records the patient was administered Famotadine, Solu-Medrol, Benadryl, and Unasyn and admitted to the hospital. Orders Ordered: Acetaminophen (Tylenol) 650 mg PO Q6HR [facility] Last Admin: 10/16/19 18:01 Dose: 650 mg Documented by: STANLEY Hydrocodone Bitart/Acetaminophen ([place] 5/325) 2 tab PO Q4HR PRN PRN Reason: Pain, Severe (7-10) Last Admin: 10/16/19 16:12 Dose: 2 tab Documented by: STANLEY Diphenhydramine HCl (Benadryl) 25 mg IV Q6HR [facility] Last Admin: 10/16/19 17:59 Dose: 25 mg Documented by: STANLEY Heparin Sodium (Porcine) (Heparin) 5,000 unit SUBCUT BID [facility] Hydromorphone HCl (Dilaudid) 0.5 mg IV Q6HR PRN PRN Reason: Pain, Moderate (4-6) Last Admin: 10/16/19 13:00 Dose: 0.5 mg Documented by: SHEILA Lactated Ringer's (Lactated Ringers) 1,000 mls @ 100 mls/hr IV CONT [facility] Last Admin: 10/16/19 12:54 Dose: 100 mls/hr Documented by: SHEILA Ampicillin Sodium/Sulbactam (Sodium 3 gm/ Sodium Chloride) 100 mls @ 100 mls/hr IV Q6H [facility] Last Admin: 10/16/19 15:55 Dose: 100 mls/hr Documented by: STANLEY Fluconazole (Diflucan) 400 mg in 200 mls @ 100 mls/hr IV Q24H [facility] Last Admin: 10/16/19 12:54 Dose: 100 mls/hr Documented by: SHEILA Famotidine (Pepcid) 20 mg in 50 mls @ 200 mls/hr IV Q24H [facility] Lidocaine HCl (Viscous Lidocaine 2%) 15 ml PO QID PRN PRN Reason: Sore Throat Last Admin: 10/16/19 16:10 Dose: 15 ml Documented by: STANLEY Magnesium Hydroxide (Milk Of Magnesia) 30 ml PO DAILY PRN PRN Reason: Constipation Methylprednisolone (Solu-Medrol) 40 mg IV Q8HR [facility] Last Admin: 10/16/19 14:05 Dose: 40 mg Documented by: EDEL Naloxone HCl (Narcan) 0.2 mg IV Q2MIN PRN PRN Reason: Opiate Reversal Olopatadine HCl (Patanol 0.1%) 1 drops EYE-BOTH BID [facility] Last Admin: 10/16/19 14:05 Dose: 1 drop Documented by: EDEL Ondansetron HCl (Zofran) 4 mg IV Q8HR PRN PRN Reason: Nausea And Vomiting Discontinued Medications Diphenhydramine HCl (Benadryl) 50 mg IV NOW ONE Stop: 10/16/19 09:07 Last Admin: 10/16/19 09:33 Dose: 50 mg Documented by: KIM Diphenhydramine HCl (Benadryl) 50 mg IV NOW ONE Stop: 10/16/19 09:43 Last Admin: 10/16/19 09:45 Dose: Not Given Documented by: MIMI Hydromorphone HCl (Dilaudid) 1 mg IV NOW ONE Stop: 10/16/19 09:25 Last Admin: 10/16/19 09:36 Dose: 1 mg Documented by: KIM Famotidine (Pepcid) 20 mg in 50 mls @ 200 mls/hr IV NOW ONE Stop: 10/16/19 09:21 Last Infusion: 10/16/19 09:53 Dose: 0 mls/hr Documented by: Admin: 10/16/19 09:38 Dose: 200 mls/hr Documented by: KIM Ampicillin Sodium/Sulbactam (Sodium 3 gm/ Sodium Chloride) 100 mls @ 100 mls/hr IV NOW ONE Stop: 10/16/19 09:41 Last Infusion: 10/16/19 11:24 Dose: 0 mls/hr Documented by: Admin: 10/16/19 10:22 Dose: 100 mls/hr Documented by: KIM Famotidine (Pepcid) 20 mg in 50 mls @ 200 mls/hr IV Q24H [facility] Last Admin: 10/16/19 13:28 Dose: Not Given Documented by: EDEL Methylprednisolone (Solu-Medrol 125 Mg Vial) 125 mg IV NOW ONE Stop: 10/16/19 09:07 Last Admin: 10/16/19 09:34 Dose: 125 mg Documented by: KIM Methylprednisolone (Solu-Medrol 125 Mg Vial) 125 mg IV NOW ONE Stop: 10/16/19 09:43 Last Admin: 10/16/19 09:44 Dose: Not Given Documented by: MIMI Vital Signs Vital signs: Vital Signs - 8 hr 10/16/19 09:05 10/16/19 09:40 Temperature 98.4 F Pulse Rate 93 H 70 Respiratory Rate 20 18 Blood Pressure 164/88 H Blood Pressure [Right Arm] 154/84 H Pulse Oximetry 99 99 MDM - Allergic Reaction Medical Records Attestation: I reviewed the patient's medical records. Lab Data Attestation: I reviewed the patient's lab results. Result diagrams: 10/16/19 09:51 10/16/19 09:51 Labs: Lab Results 10/16/19 10/16/19 Range/Units 09:51 09:51 WBC 9.8 (4.5-11.0) X10^3/uL RBC 4.42 L (4.5-5.9) X10^6/uL Hgb 13.9 (13.5-17.5) g/dL Hct 40.4 L (41-53) % MCV 91.6 (80-100) fL MCH 31.5 (26-34) PG MCHC 34.5 (30-36) % RDW 12.4 (11.6-14.8) % Plt Count 178 (150-400) X10^3/uL Neut % (Auto) 87.1 H (50-75) % Lymph % (Auto) 6.5 L (25-40) % [place] % (Auto) 5.5 (3-14) % Eos % (Auto) 0.8 L (2-4) % Baso % (Auto) 0.1 (0-2) % Neut # (Auto) 8500 H (5108-4441) /uL Lymph # (Auto) 600 L (2107-3948) /uL [place] # (Auto) 500 (0-900) /uL Eos # (Auto) 100 (0-450) /uL Baso # (Auto) 0 (0-100) /uL ESR 11 (0-15) MM/HR Sodium 143 (137-145) mmol/L Potassium 3.8 (3.4-5.1) mmol/L Chloride 106 (98-107) mmol/L Carbon Dioxide 27 (22-32) mmol/L BUN 17 (9-20) mg/dL Creatinine 1.20 (0.66-1.25) mg/dL Estimated GFR > 60.0 (>60) mL/min BUN/Creatinine Ratio 14.2 (6-22) Glucose 131 H (70-100) mg/dL Calcium 9.2 (8.4-10.2) mg/dL Total Bilirubin 0.4 (0.2-1.3) mg/dL AST 44 (17-59) IU/L ALT 27 (<50) IU/L Alkaline Phosphatase 52 (38-126) U/L C-Reactive Protein 3.0 H (<1.0) mg/dL Total Protein 7.6 (6.3-8.2) g/dL Albumin 4.2 (3.5-5.0) g/dL Globulin 3.4 (1.7-4.1) g/dL Albumin/Globulin Ratio 1.2 (1.0-2.8) Discharge Plan Departure Patient Disposition: Admitted as Observation Clinical Impression: Stomatitis, Esophagitis Allergic reaction Qualifiers: Encounter type: subsequent encounter Qualified Code(s): T78.40XD - Allergy, unspecified, subsequent encounter Fever Qualifiers: Fever type: unspecified Qualified Code(s): R50.9 - Fever, unspecified Anaphylaxis Qualifiers: Encounter type: initial encounter Qualified Code(s): T78.2XXA - Anaphylactic shock, unspecified, initial encounter Dysphagia Qualifiers: Dysphagia type: pharyngeal phase Qualified Code(s): R13.13 - Dysphagia, pharyngeal phase Conjunctivitis Qualifiers: Conjunctivitis type: unspecified Laterality: bilateral Qualified Code(s): H10.9 - Unspecified conjunctivitis Pharyngitis Qualifiers: Pharyngitis/tonsillitis etiology: unspecified etiology Qualified Code(s): J02.9 - Acute pharyngitis, unspecified Discharge Date/Time: 10/16/19 11:25 Referrals: Ambrosio Joseph MD [Primary Care Provider] - Admit Date/Time: 10/16/19 10:53 Admit Provider: Sheldon Polk
[2019-10-16] MEDS: diphenhydrAMINE 50 MG/ML VIAL IV (09:33)
[2019-10-16] MEDS: methylPREDNISolone 125 MG/2 ML VIAL IV (09:34)
[2019-10-16] MEDS: HYDROMORPHONE 1 MG INJ IV (09:36)
[2019-10-16] MEDS: FAMOTIDINE 20 MG/50 ML PIGGYBACK 200 MG IV (09:38)
[2019-10-16 09:40] VITALS: BP 154/84; PULSE 70; RESP 18; O2SAT 99
[2019-10-16 10:00] LABS: Add Manual Diff / Slide Review NO; Basophils Absolute Auto 0 /uL (0-100); Basophils Percent Auto 0.1 % (0-2); Eosinophils Absolute Auto 100 /uL (0-450); Eosinophils Percent Auto 0.8 % (2-4); Hematocrit 40.4 % (41-53); Hemoglobin 13.9 g/dL (13.5-17.5); Lymphocytes Absolute Auto 600 /uL (1100-4500); Lymphocytes Percent Auto 6.5 % (25-40); Mean Corpuscular HGB Conc 34.5 % (30-36); Mean Corpuscular Hemoglobin 31.5 PG (26-34); Mean Corpuscular Volume 91.6 fL (80-100); Monocytes Absolute Auto 500 /uL (0-900); Monocytes Percent Auto 5.5 % (3-14); Neutrophils Absolute Auto 8500 /uL (1500-7000); Neutrophils Percent Auto 87.1 % (50-75); Platelet Count 178 X10^3/uL (150-400); Red Blood Cell Count 4.42 X10^6/uL (4.5-5.9); Red Cell Distribution Width 12.4 % (11.6-14.8); White Blood Cell Count 9.8 X10^3/uL (4.5-11.0)
[2019-10-16 10:13] LABS: Alanine Aminotransferase 27 IU/L (<50); Albumin 4.2 g/dL (3.5-5.0); Albumin Globulin Ratio 1.2 (1.0-2.8); Alkaline Phosphatase 52 U/L (38-126); Aspartate Aminotransferase 44 IU/L (17-59); BUN Creatinine Ratio 14.2 (6-22); Bilirubin Total 0.4 mg/dL (0.2-1.3); Blood Urea Nitrogen 17 mg/dL (9-20); Calcium 9.2 mg/dL (8.4-10.2); Carbon Dioxide 27 mmol/L (22-32); Chloride 106 mmol/L (98-107); Estimated Glomerular Filt Rate > 60.0 mL/min (>60); Globulin 3.4 g/dL (1.7-4.1); Glucose 131 mg/dL (70-100); HEMOLYSIS < 15 (0-50); Potassium 3.8 mmol/L (3.4-5.1); Sodium 143 mmol/L (137-145); Total Protein 7.6 g/dL (6.3-8.2)
[2019-10-16 10:17] LABS: Erythrocyte Sedimentation Rate 11 MM/HR (0-15)
[2019-10-16] MEDS: AMPICILLIN/SULBACTAM 3 GM 3 GM in SODIUM CHLORIDE 0.9% 100 ML IV ×3 (10:22→21:57)
[2019-10-16 11:30] VITALS: BP 152/94; PULSE 65; RESP 16; TEMP 36.5; O2SAT 100
[2019-10-16 11:48] VITALS: BMI 23.0
--- NOTE | 2019-10-16 12:06 | PC.NURSE ---
Patient to room 1135, alert, oriented rates pain to throat 5/10, given dilaudid IVP in ER. LS CTA sats on RA 100%, no respiratory distress observed. Bilat eyes red and swollen, patient reports itchiness to eyes. Tongue is swollen and has white thin layer of exudate coating the tongue. Patient oriented to room and call light.
--- NOTE | 2019-10-16 12:29 | P.HP_ITS ---
History of Present Illness History of Present Illness Date Patient Seen: 10/16/19 Time Patient Seen: 12:30 Chief complaint: Allergic reaction Narrative: Patient with a hospitalization a few months ago with a significant severe allergic reaction to unknown etiology. Patient has been doing well since that time. On of last week he when out and had some type IV knees food. There is a bowl of soup with some type of either meet fish or beef. He began to have similar symptoms of itchy throat swelling to his eyes and face. He was concerned so he presented to the clinic he was seen by 1 of the nurse practitioners. Patient was prescribed Benadryl short course of prednisone and antacids. Patient says things were doing okay. But overnight things got worse his eyes became really itchy swollen he then began to have throat and mouth symptoms. This had him most alarm because his last significant allergic reaction he had throat swelling inability to swallow very megan irritated throat was hospitalized for number of days until symptoms resolved. Because of this he presented to the emergency department. Emergency department workup including laboratory testing etc. were unrevealing. In the emergency room he was given IV steroids started on some antibiotics because of possible infection and was desiring admission to the hospital. On my evaluation. Patient has redness and conjunctival irritation periorbital swelling and some mild face swelling. Patient has no lip swelling. Patient has a whitish adherent patch to his throat. He says this was similar last time last time he had a nasopharyngeal examination with the scope which showed that he had ears dated nasopharynx all the way down similar to his tongue this area previously also left often with sore and he was unable to eat or swallow for number of days he says it is not that bad yet but he is concerned. He had a low-grade fever yesterday but no fevers today. Says it hurts to swallow. He is having no difficulty with breathing no difficulty with urination. No skin rash no hives no swelling hands and feet or other body parts is mainly to his face and upper airway. He is unsure what the allergic resources but last time he attributed it to seafood and this time it may also be fish but he is not sure. Patient History Medical History No significant past medical history (Acute) Surgical History No pertinent past surgical history (Acute) Family & Social History Social History: household members significant other Safety & Behavioral: Feels Safe in Current Yes Environment Suicidal Ideation Description None Suicide Plan Description No Plan Tobacco & Substance use: Smoking Status Never smoker alcohol intake frequency holiday/special occasion Substance Use Type does not use Meds Home Medications and Allergies Home Medications Medication Instructions Recorded Confirmed Type diphenhydramine HCl [Benadryl 25 mg PO Q6H PRN #20 tab 10/14/19 10/16/19 Rx Allergy] epinephrine 0.3 mg IM Q20M PRN #2 each 10/14/19 10/16/19 Rx famotidine 40 mg tablet 40 mg PO DAILY #10 tab 10/15/19 10/16/19 Rx hydroxyzine pamoate 25 mg capsule 25 mg PO TID PRN #30 cap 10/15/19 10/16/19 Rx prednisone 20 mg tablet 20 mg PO DAILY #9 tab 10/15/19 10/16/19 Rx Allergies Allergy/AdvReac Type Severity Reaction Status Date / Time Fish Containing Products Allergy Severe Swelling Verified 10/16/19 12:31 of Lip/Tongue/Throat shellfish derived Allergy Swelling Verified 10/16/19 12:31 of Lip/Tongue/Throat Exam Vital Signs (past 8 hours): - 10/16/19 09:05 10/16/19 09:40 Temperature 98.4 F Pulse Rate 93 H 70 Respiratory Rate 20 18 Blood Pressure 164/88 H Blood Pressure [Right Arm] 154/84 H Pulse Oximetry 99 99 Oxygen Delivery Method Room Air Narrative Exam Narrative: Gen.: Alert good historian. Winces when he swallows HEENT: Pupils show conjunctival redness and irritation there is periorbital swelling some mild mattering. Some mild face swelling and redness. Patient has oral mucosa lip swelling. Whitish adherent patches to his tongue. Not to cheeks are back of his throat or tonsillar area no lymphadenopathy. No signs of upper respiratory wheezing Cardio: S1-S2 regular rate and rhythm no murmurs appreciated. Respiratory: Lungs are clear to auscultation no wheezes or crackles normal respiratory effort. Abdomen: Soft nontender no rebound or guarding no liver spleen enlargement no appreciable hernias Extremities: Full range of motion no appreciable weakness no cyanosis or edema. Neurologic: Grossly intact. Objective Labs Result Diagrams: 10/16/19 09:51 10/16/19 09:51 Labs: Laboratory Results - last 24 hr 10/16/19 10/16/19 09:51 09:51 WBC 9.8 RBC 4.42 L Hgb 13.9 Hct 40.4 L MCV 91.6 MCH 31.5 MCHC 34.5 RDW 12.4 Plt Count 178 Neut % (Auto) 87.1 H Lymph % (Auto) 6.5 L [place] % (Auto) 5.5 Eos % (Auto) 0.8 L Baso % (Auto) 0.1 Neut # (Auto) 8500 H Lymph # (Auto) 600 L [place] # (Auto) 500 Eos # (Auto) 100 Baso # (Auto) 0 ESR 11 Sodium 143 Potassium 3.8 Chloride 106 Carbon Dioxide 27 BUN 17 Creatinine 1.20 Estimated GFR > 60.0 BUN/Creatinine Ratio 14.2 Glucose 131 H Calcium 9.2 Total Bilirubin 0.4 AST 44 ALT 27 Alkaline Phosphatase 52 C-Reactive Protein 3.0 H Total Protein 7.6 Albumin 4.2 Globulin 3.4 Albumin/Globulin Ratio 1.2 Assessment & Plan Assessment & Plan narrative: Systemic severe allergic reaction anaphylactoid reaction affecting mostly upper airway head neck and face. Patient will be continued on IV steroids H2 blockers as well as antihistamines. Patient will be given ocular antihistamines with [place] as is eyes are very itchy and irritated. Patient has a significant amount of throat FX as well. So will provide viscous lidocaine. Will try to break the allergic reaction cycle. Because of the significant irritation and rawness to his throat and concern for ongoing bacterial infections he was started on an antibiotic in the emergency room I guess I will continue this over the next 24 hours as we further evaluate if his symptoms will be reversed or if this is going to get worse. Also differential possibilities include a fungal irritation is will keep him on an antifungal as well over the next 24-40 hours dip see where this all ends up. Patient has no other significant pertinent past medical or surgical history. He will put be placed on DVT prophylaxis. He will be admitted to the hospital. Quality VTE Deep Vein Thrombosis/Pulmonary Embolism Present on Admission: No
[2019-10-16] MEDS: FLUCONAZOLE 400 MG/200 ML PIGGYBACK 100 MG IV (12:54)
[2019-10-16] MEDS: LACTATED RINGERS 1,000 ML 100 ML IV (12:54)
[2019-10-16] MEDS: HYDROMORPHONE 1 MG INJ 0.5 MG IV (13:00)
[2019-10-16] MEDS: OLOPATADINE 0.1% OPHTH DROPS 5 ML 1 DROPS EYE-BOTH ×2 (14:05→20:25)
[2019-10-16 16:00] VITALS: BP 142/93; PULSE 68; RESP 16; TEMP 37.1; O2SAT 98
[2019-10-16] MEDS: LIDOCAINE VISCOUS 2% 15 ML SOLUTION PO ×2 (16:10→20:22)
[2019-10-16] MEDS: HYDROCODONE/ACET 5/325 TABLET 2 TAB PO ×2 (16:12→23:41)
[2019-10-16] MEDS: diphenhydrAMINE 50 MG/ML VIAL 25 MG IV ×2 (17:59→23:38)
[2019-10-16] MEDS: ACETAMINOPHEN 325 MG TABLET 650 MG PO (18:01)
[2019-10-16] MEDS: HEPARIN 5,000 UNIT/ML VIAL 5000 UNIT SUBCUT (20:23)
[2019-10-16 21:55] VITALS: BP 140/92; PULSE 65; RESP 16; TEMP 36.2; O2SAT 99
--- NOTE | 2019-10-16 23:45 | PC.NURSE ---
pt unable to swallow apple sauce. he was able to tolerate ensure after lidocain mouth wash. pt still feels his throat is swollen. white lesions in his tongue. IVF. voiding and eliminating without difficulty. call light in reach.
[2019-10-17] VITALS: BP 143/96; PULSE 58; RESP 16; TEMP 36.4; O2SAT 98
[2019-10-17] MEDS: LACTATED RINGERS 1,000 ML 100 ML IV (02:50)
[2019-10-17] MEDS: AMPICILLIN/SULBACTAM 3 GM 3 GM in SODIUM CHLORIDE 0.9% 100 ML IV ×2 (02:53→09:55)
[2019-10-17 03:52] VITALS: BP 144/101; PULSE 58; RESP 20; O2SAT 100
[2019-10-17 06:17] LABS: Add Manual Diff / Slide Review NO; Basophils Absolute Auto 0 /uL (0-100); Basophils Percent Auto 0.1 % (0-2); Eosinophils Absolute Auto 0 /uL (0-450); Hematocrit 39.9 % (41-53); Hemoglobin 13.6 g/dL (13.5-17.5); Lymphocytes Absolute Auto 500 /uL (1100-4500); Lymphocytes Percent Auto 5.2 % (25-40); Mean Corpuscular Hemoglobin 31.4 PG (26-34); Mean Corpuscular Volume 92.3 fL (80-100); Monocytes Absolute Auto 300 /uL (0-900); Monocytes Percent Auto 3.2 % (3-14); Neutrophils Absolute Auto 8800 /uL (1500-7000); Neutrophils Percent Auto 91.5 % (50-75); Platelet Count 182 X10^3/uL (150-400); Red Blood Cell Count 4.33 X10^6/uL (4.5-5.9); Red Cell Distribution Width 12.6 % (11.6-14.8); White Blood Cell Count 9.7 X10^3/uL (4.5-11.0)
[2019-10-17 06:23] LABS: BUN Creatinine Ratio 18.9 (6-22); Blood Urea Nitrogen 17 mg/dL (9-20); Calcium 9.4 mg/dL (8.4-10.2); Carbon Dioxide 31 mmol/L (22-32); Chloride 103 mmol/L (98-107); Estimated Glomerular Filt Rate > 60.0 mL/min (>60); Glucose 241 mg/dL (70-100); HEMOLYSIS < 15 (0-50); Potassium 4.2 mmol/L (3.4-5.1); Sodium 141 mmol/L (137-145)
[2019-10-17] MEDS: diphenhydrAMINE 50 MG/ML VIAL 25 MG IV (06:25)
[2019-10-17] MEDS: ACETAMINOPHEN 325 MG TABLET 650 MG PO (06:25)
[2019-10-17 08:05] VITALS: BP 142/108; PULSE 61; RESP 16; TEMP 37; O2SAT 99
[2019-10-17] MEDS: HEPARIN 5,000 UNIT/ML VIAL 5000 UNIT SUBCUT (08:05)
[2019-10-17] MEDS: LIDOCAINE VISCOUS 2% 15 ML SOLUTION PO (08:07)
[2019-10-17] MEDS: HYDROCODONE/ACET 5/325 TABLET 2 TAB PO (08:07)
[2019-10-17] MEDS: OLOPATADINE 0.1% OPHTH DROPS 5 ML 1 DROPS EYE-BOTH (08:08)
--- NOTE | 2019-10-17 08:55 | P.DS_ITS ---
History of Present Illness History of Present Illness Chief complaint: Allergic reaction Narrative: Patient with a hospitalization a few months ago with a significant severe allergic reaction to unknown etiology. Patient has been doing well since that time. On of last week he when out and had some type IV knees food. There is a bowl of soup with some type of either meet fish or beef. He began to have similar symptoms of itchy throat swelling to his eyes and face. He was concerned so he presented to the clinic he was seen by 1 of the nurse practitioners. Patient was prescribed Benadryl short course of prednisone and antacids. Patient says things were doing okay. But overnight things got worse his eyes became really itchy swollen he then began to have throat and mouth symptoms. This had him most alarm because his last significant allergic reaction he had throat swelling inability to swallow very megan irritated throat was hospitalized for number of days until symptoms resolved. Because of this he presented to the emergency department. Emergency department workup including laboratory testing etc. were unrevealing. In the emergency room he was given IV steroids started on some antibiotics because of possible infection and was desiring admission to the hospital. On my evaluation. Patient has redness and conjunctival irritation periorbital swelling and some mild face swelling. Patient has no lip swelling. Patient has a whitish adherent patch to his throat. He says this was similar last time last time he had a nasopharyngeal examination with the scope which showed that he had ears dated nasopharynx all the way down similar to his tongue this area previously also left often with sore and he was unable to eat or swallow for number of days he says it is not that bad yet but he is concerned. He had a low-grade fever yesterday but no fevers today. Says it hurts to swallow. He is having no difficulty with breathing no difficulty with urination. No skin rash no hives no swelling hands and feet or other body parts is mainly to his face and upper airway. He is unsure what the allergic resources but last time he attributed it to seafood and this time it may also be fish but he is not sure. Discharge Providers Provider Date of admission: 10/16/19 10:53 Discharge Date: 10/17/19 Primary care physician: Ambrosio Joseph MD Discharge provider: Sheldon Polk MD Summary Hospital Course Discharge Diagnosis: Anaphylaxis unknown etiology Hospital Course: Patient was admitted to the hospital with anaphylactic reaction. With systemic symptoms of significant facial rash ocular swelling mucocutaneous symptoms with difficulty swallowing and initial difficulty with secretions. Previously admitted to the hospital 6 months ago with similar symptoms. He was evaluated as an outpatient today before hospitalization started on appropriate medication but despite this medications continue to of all than worsen. He was admitted the hospital for IV steroids IV antihistamines. Viscous lidocaine ocular antihistamines antibiotics and antifungal medication. Says his symptoms are very clearly similar to the last time he had it. He has seems it may be either the fish that he ate or possibly an anti-inflammatory although he has had both of these meds as past reaction. During the hospital stay he received IV steroids had improvement. Viscous lidocaine which helped with his swallowing. Ocular manifestations were improved with ocular anti-inflammatories. On re-evaluation 24 hours. Patient still had some rash some mild irritation to his tongue his throat was significantly better he was eating and tolerating fluids. Ambulating well had no wheezing or stridor. Patient was requesting to go home he says is much better than it was yesterday and much better than the severity that he had previously when he was hospitalized for this. He has at home prednisone Benadryl and H2 blockers as well as Vistaril. Exam Vital Signs (past 8 hours): - 10/17/19 03:52 Pulse Rate 58 L Respiratory Rate 20 Blood Pressure 144/101 H Pulse Oximetry 100 Oxygen Delivery Method Room Air Oxygen Flow Rate 0 Narrative Exam Narrative: Gen.: Alert and oriented x3 no apparent distress. HEENT: Still some ocular involvement with redness and periocular swelling. Oral symptoms include stomatitis cyst and mild tongue swelling with whitish adherent plaques. Still some difficulty with swallowing. Cardio: S1-S2 regular rate and rhythm no murmurs appreciated. Respiratory: No respiratory distress or wheezing Abdomen: Soft nontender no rebound or guarding no liver spleen enlargement no appreciable hernias Extremities: Full range of motion no appreciable weakness no cyanosis or edema. Neurologic: Grossly intact. Objective Labs Result Diagrams: 10/17/19 05:45 10/17/19 05:45 Labs: Laboratory Results - last 24 hr 10/16/19 10/16/19 10/17/19 09:51 09:51 05:45 WBC 9.8 9.7 RBC 4.42 L 4.33 L Hgb 13.9 13.6 Hct 40.4 L 39.9 L MCV 91.6 92.3 MCH 31.5 31.4 MCHC 34.5 34.0 RDW 12.4 12.6 Plt Count 178 182 Neut % (Auto) 87.1 H 91.5 H Lymph % (Auto) 6.5 L 5.2 L [place] % (Auto) 5.5 3.2 Eos % (Auto) 0.8 L 0.0 L Baso % (Auto) 0.1 0.1 Neut # (Auto) 8500 H 8800 H Lymph # (Auto) 600 L 500 L [place] # (Auto) 500 300 Eos # (Auto) 100 0 Baso # (Auto) 0 0 ESR 11 Sodium 143 Potassium 3.8 Chloride 106 Carbon Dioxide 27 BUN 17 Creatinine 1.20 Estimated GFR > 60.0 BUN/Creatinine Ratio 14.2 Glucose 131 H Calcium 9.2 Total Bilirubin 0.4 AST 44 ALT 27 Alkaline Phosphatase 52 C-Reactive Protein 3.0 H Total Protein 7.6 Albumin 4.2 Globulin 3.4 Albumin/Globulin Ratio 1.2 10/17/19 05:45 WBC RBC Hgb Hct MCV MCH MCHC RDW Plt Count Neut % (Auto) Lymph % (Auto) [place] % (Auto) Eos % (Auto) Baso % (Auto) Neut # (Auto) Lymph # (Auto) [place] # (Auto) Eos # (Auto) Baso # (Auto) ESR Sodium 141 Potassium 4.2 Chloride 103 Carbon Dioxide 31 BUN 17 Creatinine 0.90 Estimated GFR > 60.0 BUN/Creatinine Ratio 18.9 Glucose 241 H D Calcium 9.4 Total Bilirubin AST ALT Alkaline Phosphatase C-Reactive Protein Total Protein Albumin Globulin Albumin/Globulin Ratio Discharge Plan Discharge Plan Discharge Problem: Allergic reaction, Fever, Anaphylaxis, Stomatitis, Esophagitis, Dysphagia, Conjunctivitis, Pharyngitis Patient Disposition: Home Discharge comment: Home follow-up with Dr. Joseph next week will need a allergy evaluation Discharge orders & Medications Prescriptions: New prednisone 20 mg tablet 40 mg PO DAILY Qty: 30 RF: 0 Continued famotidine 40 mg tablet 40 mg PO DAILY Qty: 10 RF: 0 hydroxyzine pamoate 25 mg capsule 25 mg PO TID PRN (Reason: itching) Qty: 30 RF: 0 diphenhydramine HCl [Benadryl Allergy] 25 mg tablet 25 mg PO Q6H PRN (Reason: allergic reaction) Qty: 20 RF: 0 epinephrine 0.3 mg/0.3 mL auto-injector 0.3 mg IM Q20M PRN (Reason: anaphylaxis) Qty: 2 RF: 0 Discontinued prednisone 20 mg tablet 20 mg PO DAILY Qty: 9 RF: 0 Follow up/Referrals: Ambrosio Joseph MD [Primary Care Provider] - Visit Report/Discharge Packet Visit Report Forms: Patient Portal/API, Stroke Signs & Symptoms Discharge Data Primary Care Provider: Ambrosio Joseph Attending Provider: Sheldon Polk Admit Date/Time: 10/16/19 10:53 Quality VTE Deep Vein Thrombosis/Pulmonary Embolism Present on Admission: No
--- NOTE | 2019-10-17 10:19 | PC.NURSE ---
PATIENT HAS NO C/O OF BREATHING DIFFICULTY, NO S/SX'S OF DISTRESS. NO STRIDOR OR WHEEZES. LUNGS CLEAR. FACIAL REDNESS PERSISTS BUT IS IMPROVED EVEN SINCE EARLIER THIS AM. HANNAH-ORBITAL EDEMA NOTED. EYES REDDENED, IMPROVED W/ EYE DROPS. REPORTS DISCOMFORT W/ SWALLOWING. GIVEN VISCOUS LIDO ORDERED PRN PRIOR TO BREAKFAST PER PATIENT REQUEST. NO COUGH. HTN THIS AM. NOTIFIED. ATTRIBUTES TO STEROIDS. NO NEW ORDERS AT THIS TIME.
--- NOTE | 2019-10-17 10:20 | PC.NURSE ---
PATIENT COMPLAINING OF PAINFUL SWALLOWING /10 STATES THAT LIDOCAINE HELPS WITH HIS ABILITY TO EAT AND SWALLOW. ERYTHEMA TO FACE AND PERIORBITAL EDEMA NOTED, BUT EDEMA AND FACIAL ERYTHEMA HAS DECREASED SINCE THE BEGINNING OF THIS SHIFT. PATIENT STATES NO DIFFICULTY BREATHING, LUNG SOUNDS CLEAR TO AUSCULTATION, NO STRIDOR OR WHEEZING NOTED. PATIENT RESTING IN BED WITH HIS GIRLFRIEND AT BEDSIDE. PLAN IS TO DISCHARGE LATER TODAY.
--- NOTE | 2019-10-17 10:36 | CM.DANOTE ---
DCP Brief Assessment Note: Patient is a 53 year old male who was admitted on 10/16/19 for Allergic Reaction. Pt has [employer] for insurance and his PCP is Dr. Ambrosio Joseph. EMR was reviewed. Per MD, pt medically stable to d/c home today with outpt follow up with an toilet attendant. Per RN, no concerns at this time. Pt with a recent hx of similar allergic reaction and was admitted to [facility] in Jun 2019 and was able to d/c home with no needs at that time. Pt lives in [place] alone and works for the [employer] and has supportive significant other who lives in [place]. Pt independent with ADL's at baseline and drives. Plan: Patient to d/c home today with outpt follow up and no SW needs at this time. SHARATH Duval
--- NOTE | 2019-10-17 11:25 | PC.NURSE ---
PATIENT WAS PROVIDED EDUCATION ON NEW DOSE OF PREDNISONE AND ANAPHYLAXIS PREVENTION AND TO F/U WITH PROVIDER FOR ALLERGEN TESTING. D/C IV, PT TOLERATED WELL. PATIENT WAS ASSISTED OUT OF THE FACILITY VIA WHEELCHAIR WITH ASSISTANCE FROM ME AND HIS GIRLFRIEND. PATIENT STATED HE WAS FEELING WELL AND READY TO GO BACK HOME.
== END 2019-10-17 11:30 | disposition home or self-care (01) ==
LOC: ED 10:48 → AC 10:54
PROVIDERS: Admitting Provider Family Medicine; Emergency Provider Emergency Medicine; PCP Family Medicine; Visit Provider Family Medicine
DX: T78.2XXA Anaphylactic shock, unspecified, initial encounter (principal); T78.40XA Allergy, unspecified, initial encounter; R13.13 Dysphagia, pharyngeal phase; H10.9 Unspecified conjunctivitis; J02.9 Acute pharyngitis, unspecified; R50.9 Fever, unspecified
CPT/HCPCS: 36415; 80048; 80053; 85025; 85651; 86140; 87070; 96365; 96366; 96367; 96372; 96375; 96376; 99217; 99219; 99284; G0378; J0295; J1170; J1200; J1450; J1644; J2920; J2930

== ENCOUNTER → 2019-11-10 11:55 | Outpatient (CLI) | payer OTHER, SELFPAY ==
[2019-10-16 11:48] VITALS: BMI 23.0
[2019-11-10 16:34] LABS: Add Manual Diff / Slide Review NO; Basophils Absolute Auto 0 /uL (0-100); Basophils Percent Auto 0.4 % (0-2); Eosinophils Absolute Auto 100 /uL (0-450); Eosinophils Percent Auto 1.3 % (2-4); Hematocrit 41.8 % (41-53); Hemoglobin 14.3 g/dL (13.5-17.5); Lymphocytes Absolute Auto 1400 /uL (1100-4500); Lymphocytes Percent Auto 27.2 % (25-40); Mean Corpuscular HGB Conc 34.2 % (30-36); Mean Corpuscular Hemoglobin 31.5 PG (26-34); Monocytes Absolute Auto 400 /uL (0-900); Monocytes Percent Auto 8.3 % (3-14); Neutrophils Absolute Auto 3300 /uL (1500-7000); Neutrophils Percent Auto 62.8 % (50-75); Platelet Count 229 X10^3/uL (150-400); Red Blood Cell Count 4.55 X10^6/uL (4.5-5.9); White Blood Cell Count 5.2 X10^3/uL (4.5-11.0)
[2019-11-10 17:20] LABS: Alanine Aminotransferase 31 IU/L (<50); Albumin 4.7 g/dL (3.5-5.0); Albumin Globulin Ratio 1.4 (1.0-2.8); Alkaline Phosphatase 71 U/L (38-126); Aspartate Aminotransferase 44 IU/L (17-59); Bilirubin Total 0.9 mg/dL (0.2-1.3); Bilirubin Unconjugated 0.6 mg/dL (0.0-1.1); Globulin 3.4 g/dL (1.7-4.1); HEMOLYSIS < 15 (0-50); Total Protein 8.1 g/dL (6.3-8.2)
[2019-11-10 17:42] LABS: Erythrocyte Sedimentation Rate 7 MM/HR (0-15)
[2019-11-12 10:09] LABS: C1 Esterase Inhibitor 34 mg/dL (21-39)
[2019-11-12 13:26] LABS: C1 Esterase Inhibitor, Func 98 (.)
[2019-11-13 13:30] LABS: ANA Screen, IFA Negative (.)
[2019-11-13 23:06] LABS: Immunoglobulin E 31 IU/mL (6-495)
== END ==
PROVIDERS: PCP Family Medicine; Referring Provider Allergy & Immunology; Visit Provider Allergy & Immunology
DX: T78.3XXD Angioneurotic edema, subsequent encounter (principal)
CPT/HCPCS: 36415; 80076; 82785; 83520; 85025; 85651; 86003; 86038; 86160; 86161

== ENCOUNTER → 2020-04-12 10:55 | Outpatient (CLI) | payer OTHER, SELFPAY ==
--- NOTE | 2020-04-12 10:57 | DI.CT.S_ITS ---
PROCEDURE: CT SOFT TISSUE NECK W CON INDICATIONS: Follow-up pharyngitis and lung nodule TECHNIQUE: After the administration of intravenous contrast, 3.0 mm axial sections acquired from the sella to the aortic arch. Additional oblique axial 3.0 mm sections acquired through the pharynx. 3 mm thick coronal and sagittal reformats were generated. For radiation dose reduction, the following was used: automated exposure control. COMPARISON: [facility], CT, CT SOFT TISSUE NECK W CON, 06/01/2019, 16:42. FINDINGS: Image quality: Excellent. Lymph nodes: No enlarged lymph nodes seen throughout the neck. Vessels: Visualized vasculature appears patent. Neck spaces: The oropharynx, nasopharynx, and pharynx demonstrate no mucosal lesions. Mild mucosal thickening involving the oropharynx has resolved in the interval since prior exam obtained June 01, 2018. The vocal cords, false vocal cords, pyriform sinuses, epiglottis, vallecula, and tongue base all appear normal. Extramucosal spaces appear unremarkable. Glands: The parotid and submandibular glands appear normal. Thyroid gland is normal. Miscellaneous: Visualized brain and orbits appear normal. 5 millimeter nodule with irregular margins of the apex of the right lung is not significantly changed compared to June 01, 2019. Superficial soft tissues appear normal. Bones: No suspicious bony lesions. Mild mucosal thickening noted in the floors of the maxillary sinuses bilaterally. The visualized mastoids appear unremarkable. IMPRESSION: 1. 5 millimeter nodule in the apex of the right lung not significantly changed compared to June 01, 2019. 2. No lymphadenopathy based on size criteria 3. No mucosal-based mass or mucosal thickening. Dictated by: Lana Gusman MD, PhD on 04/12/2020 at 12:35 Approved by: Lana Gusman MD, PhD on 04/12/2020 at 12:46
--- NOTE | 2020-04-12 10:57 | DI.CT.S_ITS ---
PROCEDURE: CT CHEST ABD PEL W CON INDICATIONS: Follow-up pharyngitis and lung nodule TECHNIQUE: After the administration of oral and intravenous contrast, 5 mm thick sections acquired from the lung apices to the symphysis. 5 mm coronal and sagittal reformats were performed, with additional 7 mm coronal MIP reformats through the lungs. For radiation dose reduction, the following was used: automated exposure control, adjustment of mA and/or kV according to patient size. COMPARISON: [facility], CT, CT SOFT TISSUE NECK W CON, 04/12/2020, 12:07. [facility], CT, CT SOFT TISSUE NECK W CON, 06/01/2019, 16:42. FINDINGS: Image quality: Excellent. CHEST: Lungs and pleura: The 5 mm irregular nodule in the right apex anteriorly (series 2, image 50) is unchanged. No acute airspace opacities. No pleural effusions or pneumothorax. Central and peripheral airways appear patent and normal in caliber. Mediastinum: Heart size is normal. No pericardial effusion. No mediastinal or hilar adenopathy by size criteria. Thoracic aorta and central pulmonary arteries are normal in size. Esophagus is normal in caliber. No hiatal hernia. Chest wall: No axillary or supraclavicular adenopathy by size criteria. Thyroid gland is normal . ABDOMEN: Solid organs: Liver is normal in size and enhancement. Gallbladder is normal . Biliary system is non dilated. Pancreas enhances normally. Spleen is normal in size and enhancement. No adrenal nodules. Kidneys demonstrate normal size and enhancement, without hydronephrosis. Peritoneum and bowel: Bowel loops demonstrate normal wall thickness and caliber. No free fluid or air. Nodes and vessels: No retroperitoneal or mesenteric adenopathy by size criteria. Aorta and inferior vena cava are normal in size. Miscellaneous: No ventral hernias. PELVIS: Genitourinary: Bladder wall thickness is normal. Miscellaneous: No inguinal hernias or adenopathy. Bones: No suspicious bony lesions. No vertebral body compression fractures. IMPRESSION: 1. Stable 5 mm irregular nodule in the right upper lobe. Continued surveillance is suggested. 2. No neoplastic process identified in chest, abdomen or pelvis. Dictated by: Daniel Elkins M.D. on 04/12/2020 at 15:11 Approved by: Daniel Elkins M.D. on 04/12/2020 at 18:06
[2020-04-13 18:09] LABS: Free Kappa Lt Chains, Serum 14.4 mg/L (3.3-19.4); Free Lambda Lt Chains,Serum 7.9 mg/L (5.7-26.3)
[2020-04-14 10:55] LABS: Albumin 4.5 g/dL (2.9-4.4); Alpha-1-Globulin 0.3 g/dL (0.0-0.4); Alpha-2-Globulin 0.7 g/dL (0.4-1.0); Gamma Globulin 1.4 g/dL (0.4-1.8); Globulin Total 3.6 g/dL (2.2-3.9); Protein, Total 8.1 g/dL (6.0-8.5)
[2020-05-02 13:04] LABS: Albumin 0; Protein, Total, 24 hr urine <2.0; Total Urine Protein < 4.0
[2020-05-02 13:05] LABS: PDF SEE EMR
== END ==
PROVIDERS: PCP Family Medicine; Referring Provider Family Medicine; Visit Provider Internal Medicine
DX: R91.1 Solitary pulmonary nodule (principal); J02.9 Acute pharyngitis, unspecified
CPT/HCPCS: 36415; 70491; 71260; 74177; 83883; 84155; 84156; 84165; 84166; Q9967

== ENCOUNTER → 2020-05-12 08:32 | Outpatient (CLI) | payer OTHER, SELFPAY ==
[2020-05-13 08:09] LABS: 24 Hour Ur Protein Calculated <102 mg/24 hr (30-150)
[2020-05-15 14:42] LABS: Free Kappa Lt Chain,UR 4.18 mg/L (0.63-113.79); Free Lambda Lt Chain,UR <0.64 mg/L (0.47-11.77); URINE Kappa/Lambda Ratio >6.53 (1.03-31.76)
[2020-05-16 11:18] LABS: M-Spike % Not Observed % (Not Observed); Total Urine Protein < 4.0 mg/dL (Not Estab.)
== END ==
PROVIDERS: Internal Medicine; PCP Family Medicine; Referring Provider Family Medicine; Visit Provider Family Medicine
DX: R89.9 Unspecified abnormal finding in specimens from other organs, systems and tissues (principal)
CPT/HCPCS: 83883; 84156; 84166; 86335

== ENCOUNTER → 2020-07-14 09:58 | Outpatient (CLI) | payer OTHER, SELFPAY ==
--- NOTE | 2020-07-14 10:15 | DI.US.S_ITS ---
PROCEDURE: US ABDOMEN LIMITED INDICATIONS: L groin pain TECHNIQUE: Real-time focused scanning was performed of the abdomen, with image documentation. COMPARISON: [facility], CT, CT CHEST ABD PEL W CON, 04/12/2020, 12:07. FINDINGS: At the site of clinical concern involving the left groin, there is a bowel containing hernia that measures up to 3 x 1.4 x 1.8 cm. IMPRESSION: Bowel containing left groin hernia. Surgical consultation is recommended. If it would be helpful for clinical management decision making, please consider a dedicated CT of the pelvis, with IV and oral contrast. Dictated by: Nickolas Lemon M.D. on 07/14/2020 at 9:28 Approved by: Nickolas Lemon M.D. on 07/14/2020 at 9:30
== END ==
PROVIDERS: PCP Family Medicine; Referring Provider Physician Assistant; Visit Provider Physician Assistant
DX: K40.90 Unilateral inguinal hernia, without obstruction or gangrene, not specified as recurrent (principal)
CPT/HCPCS: 76705

== ENCOUNTER → 2020-07-21 12:08 | Outpatient (CLI) | payer OTHER, SELFPAY ==
[2020-07-21 12:55] LABS: COVID19 -Nasal RAPID Negative (Negative)
== END ==
PROVIDERS: PCP Family Medicine; Visit Provider Specialist
DX: Z01.812 Encounter for preprocedural laboratory examination (principal); Z11.59 Encounter for screening for other viral diseases
CPT/HCPCS: 87635; C9803

== ENCOUNTER 2020-07-24 08:18 | Day surgery (SDC) | payer OTHER, SELFPAY ==
[2020-07-21 08:36] VITALS: BMI 24.9
[2020-07-24] VITALS (10 sets, daily range): BP systolic 134–151; BP diastolic 84–103; PULSE 80–100; RESP 13–22; TEMP 36.2–37.1; O2SAT 96–99; BMI 23.8
[2020-07-24] MEDS: LACTATED RINGERS 1,000 ML 100 ML IV ×2 (08:47→09:51)
[2020-07-24] MEDS: CEFAZOLIN 2 GM/100 ML FROZ.PIGGY IV (08:59)
--- NOTE | 2020-07-24 08:59 | PM.PREOP ---
Pre-operative Note COVID-19 COVID-19 status: Negative Result date/Date tested (Pos, Neg/Pending): 07/21/20 Interval Note History & Physical reviewed/Exam performed by Physician: Yes Changes to H&P: No
--- NOTE | 2020-07-24 09:13 | SUR.OPER ---
Supine on padded OR bed, head on pillow, arms secured on padded arm boards at <90 degrees abduction, legs uncrossed, safety belt at thigh, tape over blanket over lower legs.
[2020-07-24] MEDS: BUPIVACAINE 0.5% (PF) VIAL 30 ML INJ (09:18)
--- NOTE | 2020-07-24 10:45 | PM.OP.1 ---
Operative Date/Time/Diagnoses Date of procedure: 07/24/20 Time of procedure: 10:28 Pre-op diagnosis: Left inguinal hernia reducible Post-op diagnosis: same (Indirect and direct component) Procedure & Clinicians Procedure: Repair of hernia with plug and patch technique Same procedure as scheduled: Yes Indications: Symptomatic left inguinal hernia Surgeon: Ernesto Matute Click Yes if Unassisted: Yes Anesthesia Type: General Operative Notes Findings: Indirect sac containing fat. Direct hernia. Closure Type: primary Specimen(s): none sent Prosthetic devices, grafts, tissues, transplants, or devices: Mesh Estimated Blood Loss (mL): 7 Blood products transfused: none Procedure in detail: The patient was placed supine on the operating room table and underwent general LMA anesthesia. He was prepped and draped in the usual fashion. A transverse incision was made overlying the left internal ring and carried down to the level of the external oblique. The external oblique was opened parallel with its fibers through the external ring. The cord structures were elevated. The cremaster was opened proximally and search made for an indirect sac. I was able to identify very small lipoma of the cord which I simply dissected out and cauterized the base and removed. Adjacent to it was a indirect sac which was from surrounding structures. It was opened and found to have adhesed fat within it. Was a small amount of fat and I chose simply to cauterize and remove it. 2-0 silk was used to pursestring and then tie the sac at the level the deep epigastric vessels. The distal portion was removed and the stump allowed to retract. A medium plug was placed in the defect created and tacked into place with interrupted Ethibond suture.. The floor was examined and was found to be weakened. A patch was placed across the floor and tacked at the pubic tubercle, the posterior lamella of the anterior rectus sheath, the ilioinguinal ligament, and superior lateral to the cord. The opening was modified as necessary to prevent tight constriction of the cord. Sutures of 0 Ethibond were used to secure the mesh. The external oblique was closed with a running 3 0 Vicryl. The subcu was closed with interrupted 3 0 Vicryl. The skin was closed with a running 4 0 Vicryl subcuticular stitch and Steri-Strips. Dressing was applied, the patient was awakened, and the patient was taken to the recovery area in good condition. Complications: none Post-operative Condition: stable Disposition: PACU Plan for aftercare: Follow-up in the office
[2020-07-24] MEDS: OXYCODONE/ACETAMINOPHEN 5/325 TABLET 1 TAB PO (10:47)
--- NOTE | 2020-07-24 11:12 | SUR.PHASEII ---
pt arrived from phase I to phase II. Pt sitting up in stretcher, A & Ox3. Pt denies any pain/discomfort or nausea at this time. Bed in lowest position and call light given to pt. Awaiting arrival of pt at this time.
== END 2020-07-24 11:53 | disposition home or self-care (01) ==
PROVIDERS: PCP Family Medicine; Referring Provider Specialist; Visit Provider Specialist
PROC: (CPT 49505; principal; 2020-07-24 15:45)
DX: K40.90 Unilateral inguinal hernia, without obstruction or gangrene, not specified as recurrent (principal); D17.6 Benign lipomatous neoplasm of spermatic cord
CPT/HCPCS: 49505; 82962; C1781; J0690; J1100; J2405; J2704; J3010